=== PATIENT | male | born 1985 | race Caucasian/White ===

== ENCOUNTER 2017-01-31 16:26 | Inpatient (IN) | payer SELFPAY ==
[2017-01-31] VITALS (7 sets, daily range): BP systolic 116–125; BP diastolic 64–80; PULSE 95–108; RESP 16–18; TEMP 98.4–99.3; O2SAT 98–100
[~2017-01-31] VITALS: Ht 165.1 cm; Wt 62.8 kg
[2017-01-31] MEDS ORDERED: MORPHINE SULFATE 8 MG/ML INJ ONE (16:32)
[2017-01-31] MEDS ORDERED: LIDOCAINE HCL 1% PF 30 ML VIAL ONE (16:35)
[2017-01-31] MEDS ORDERED: MIDAZOLAM HCL 5 MG/ML VIAL (1 ML) ONE (16:36)
[2017-01-31 16:51] LABS: I-STAT POTASSIUM 3.2 MMOL/L (3.5-4.9)
[2017-01-31 16:54] LABS: AUTOMATED NEUTROPHIL # 5.3 TH/MM3 (1.8-7.7); BASOPHIL % 0.4 % (0.0-2.0); EOSINOPHIL # 0.1 TH/MM3 (0-0.4); EOSINOPHIL % 0.8 % (0.0-4.0); HEMATOCRIT 37.5 % (39.0-51.0); HEMO FLAGS DIFF FINAL; LYMPH % 17.1 % (9.0-44.0); LYMPHOCYTE # 1.2 TH/MM3 (1.0-4.8); MEAN CELL VOLUME 75.2 FL (80.0-100.0); MEAN CORPUSCULAR HEMOGLOBIN 24.6 PG (27.0-34.0); MEAN CORPUSCULAR HGB CONC 32.7 % (32.0-36.0); MONO % 8.5 % (0.0-8.0); NEUT % 73.2 % (16.0-70.0); PLATELET COUNT 182 TH/MM3 (150-450); RED BLOOD COUNT 4.98 MIL/MM3 (4.50-5.90); RED CELL DISTRIBUTION WIDTH 13.5 % (11.6-17.2); WHITE BLOOD COUNT 7.3 TH/MM3 (4.0-11.0)
[2017-01-31 17:02] LABS: APTT (PATIENT) 25.1 SEC (24.3-30.1); INTERNATIONAL NORMALIZED RATIO 1.2 RATIO; PROTHROMBIN TIME - PATIENT 13.6 SEC (9.8-11.6)
--- NOTE | 2017-01-31 17:02 | RADRPT ---
EXAM DATE/TIME: 01/31/2017 16:23 [facility] COMPARISON: No previous studies available for comparison. INDICATIONS : Trauma alert. Fall from tree. MEDICAL HISTORY : None. SURGICAL HISTORY : None. ENCOUNTER: Initial ACUITY: 1 day PAIN SCORE: 0/10 LOCATION: Bilateral chest FINDINGS: A single view of the chest demonstrates the lungs to be symmetrically aerated without evidence of mas s, infiltrate or effusion. The cardiomediastinal contours are unremarkable. Osseous structures are intact. CONCLUSION: No acute disease. Babak Rios MD on January 31, 2017 at 17:00 Board Certified Radiologist. This report was verified electronically.
--- NOTE | 2017-01-31 17:10 | PD ---
HPI Chief Complaint: trauma alert Time Seen by Provider: 17:02 Travel History International Travel<30 days: No Contact w/Intl Traveler<30days: No Traveled to known affect area: No History of Present Illness HPI This patient presents as a trauma alert. I gave report to trauma surgeon Dr. Lala who is present in the emergency room upon arrival of the patient. 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 He is presenting with very unstable vital signs. Initially found to be hypotensive at 89 systolic and tachycardic 160. GCS 15. He complains of pain "everywhere" . He is chief complaint is left hip pain. He is critically ill Allergies-Medications (Allergen,Severity, Reaction): Coded Allergies: No Known Allergies (Unverified , 01/31/17) Reported Meds & Prescriptions Reported Meds & Active Scripts Active No Active Prescriptions or Reported Medications Review of Systems General / Constitutional: No: Fever Eyes: No: Visual changes HENT: Positive: Headaches, Neck Pain Cardiovascular: Positive: Chest Pain or Discomfort, Tachycardia Respiratory: No: Shortness of Breath Gastrointestinal: No: Abdominal Pain Genitourinary: No: Dysuria Musculoskeletal: Positive: Pain Skin: No Rash Neurologic: No: Weakness Psychiatric: No: Depression Endocrine: No: Polydipsia Hematologic/Lymphatic: No: Easy Bruising Physical Exam Narrative GENERAL: Well-nourished, well-developed patient with severe pain and unstable vitals . SKIN: Focused skin assessment reveals no rash and nodules. Skin is Warm and dry. HEAD: Atraumatic. Normocephalic. EYES: Pupils equal and round. No scleral icterus. No injection or drainage. ENT: No nasal bleeding or discharge. Mucous membranes pink and moist. NECK: Trachea midline. No JVD. C-collar maintained CARDIOVASCULAR: Regular rate and rhythm. No murmur appreciated. RESPIRATORY: No accessory muscle use. Clear to auscultation. Breath sounds equal bilaterally. GASTROINTESTINAL: Abdomen soft, non-tender, nondistended. Hepatic and splenic margins not palpable. MUSCULOSKELETAL: Has tenderness and swelling at the proximal left femur. No clubbing. No cyanosis. No edema. Sensation and pulses intact in extremities. Has abrasion to the left mid back NEUROLOGICAL: Awake and alert. No obvious cranial nerve deficits. Motor grossly within normal limits. Normal speech. PSYCHIATRIC: Appropriate mood and affect; insight and judgment normal. Data Data Last Documented VS Vital Signs Date Time Temp Pulse Resp B/P Pulse Ox O2 Delivery O2 Flow Rate FiO2 01/31/17 16:51 99 4.00 Orders Morphine Inj (Morphine Inj) (01/31/17 16:32) I-Stat Profile (01/31/17 16:31) I-Stat Creatinine (01/31/17 16:31) Complete Blood Count With Diff (01/31/17 16:31) Prothrombin Time / Inr (Pt) (01/31/17 16:31) Act Partial Throm Time (Ptt) (01/31/17 16:31) Type And Screen (01/31/17 16:31) Chest, Single Ap (01/31/17 16:31) Ct Brain W/O Iv Contrast(Rout) (01/31/17 16:31) Ct Cerv Spine W/O Contrast (01/31/17 16:31) Ct Abd/Pel W Iv Contrast(Rout) (01/31/17 16:31) Ct Thorax/ Chest W Iv Contrast (01/31/17 16:31) Ct Thor Spine W/O Contrast (01/31/17 16:31) Ct Lumb Spine W/O Contrast (01/31/17 16:31) Iv Access Insert/Monitor (01/31/17 16:31) Ecg Monitoring (01/31/17 16:31) Oximetry (01/31/17 16:31) Oxygen Administration (01/31/17 16:31) Chest, Single Ap (01/31/17 ) Lidocaine Pf 1% Inj (Xylocaine-Mpf 1% In (01/31/17 16:35) Midazolam Inj (Versed Inj) (01/31/17 16:36) Femur, One View (01/31/17 ) Admit To Inpatient (01/31/17 ) Code Status (01/31/17 17:04) Vital Signs (Adult) Q4H (01/31/17 17:04) Activity Bed Rest (01/31/17 17:04) Chest Tube (01/31/17 17:04) Diet Npo (01/31/17 Dinner) Sodium Chlor 0.9% 1000 Ml Inj (Ns 1000 M (01/31/17 17:04) Sodium Chloride 0.9% Flush (Ns Flush) (01/31/17 17:15) Sodium Chloride 0.9% Flush (Ns Flush) (01/31/17 21:00) Ondansetron Inj (Zofran Inj) (01/31/17 17:15) Pantoprazole Inj (Protonix Inj) (01/31/17 17:15) Basic Metabolic Panel (Bmp) (02/01/17 06:00) Complete Blood Count With Diff (02/01/17 06:00) Chest, Single Ap (02/01/17 06:00) Resp Incentive Spirometry (01/31/17 ) Post-Op Orders (For Pharmacy) (Post-Op O (01/31/17 17:15) Morphine Inj (Morphine Inj) (01/31/17 17:15) Naloxone Inj (Narcan Inj) (01/31/17 17:15) Inpatient Certification (01/31/17 ) Fentanyl 50 Mcg Patch.72 Hr (Duragesic (01/31/17 17:15) Labs Laboratory Tests Test 01/31/17 16:32 White Blood Count 7.3 TH/MM3 Red Blood Count 4.98 MIL/MM3 Hemoglobin 12.3 GM/DL Bedside Hemoglobin 12.9 G/DL Hematocrit 37.5 % Bedside Hematocrit 38.0 % Mean Corpuscular Volume 75.2 FL Mean Corpuscular Hemoglobin 24.6 PG Mean Corpuscular Hemoglobin 32.7 % Concent Red Cell Distribution Width 13.5 % Platelet Count 182 TH/MM3 Mean Platelet Volume 8.7 FL Neutrophils (%) (Auto) 73.2 % Lymphocytes (%) (Auto) 17.1 % Monocytes (%) (Auto) 8.5 % Eosinophils (%) (Auto) 0.8 % Basophils (%) (Auto) 0.4 % Neutrophils # (Auto) 5.3 TH/MM3 Lymphocytes # (Auto) 1.2 TH/MM3 Monocytes # (Auto) 0.6 TH/MM3 Eosinophils # (Auto) 0.1 TH/MM3 Basophils # (Auto) 0.0 TH/MM3 CBC Comment DIFF FINAL Differential Comment Prothrombin Time 13.6 SEC Prothromb Time International 1.2 RATIO Ratio Activated Partial 25.1 SEC Thromboplast Time Bedside Sodium 145 MMOL/L Bedside Potassium 3.2 MMOL/L Bedside Chloride 107 MMOL/L Bedside Blood Urea Nitrogen 11 MG/DL Bedside Creatinine 1.7 MG/DL Bedside Glucose 120 MG/DL Blood Type A POSITIVE Antibody Screen NEGATIVE MDM Medical Screen Exam Complete: Yes Emergency Medical Condition: Yes Medical Record Reviewed: Yes Differential Diagnosis Pelvic fracture, hip fracture, intra-abdominal organ injury Narrative Course This patient presents as trauma alert critically ill 2 IVs placed He received 2 L normal saline IV bolus We gave him a dose of morphine and Zofran for symptom relief of severe pain Dr. Lala reviewed his chest x-ray and performed right sided chest tube Femur x-ray reveals left sided proximal femur fracture He arrived in a traction splint After IV fluid his blood pressure improved Blood pressure approximately 110 systolic Heart rate came down to 120s sinus tachycardia Patient will get full CT scan workup Saturation after chest tube 100% on oxygen nasal cannula CT brain negative CT C-spine negative CT chest shows multiple moderate right pneumothorax and chest tube in position CT abdomen and pelvis shows no true abdominal organ injury but does reveal proximal femur fracture on left Patient is admitted to intensive care trauma surgery Critical Care Narrative Aggregate critical care time was 34 minutes. Time to perform other separately billable procedures was not included in the critical care time. My time did not include minutes spent treating any other patients simultaneously or on activities that did not directly contribute to the patient's treatment. The services I provided to this patient were to treat and/or prevent clinically significant deterioration that could result in: Cardiopulmonary arrest, hemorrhagic shock, unstable pelvic fracture I provided critical care services requiring my management, as noted below: Chart data review, documentation time, medication orders and management, vital sign assessments/reviewing monitor data, ordering and reviewing lab tests, ordering and interpreting/reviewing x-rays and diagnostic studies, care of the patient and discussion of the patient with the admitting physicians. Trauma Alert - Level One Trauma Alert Level One: Full trauma team activate Diagnosis Diagnosis: Primary Impression: Femur fracture, left Qualified Code: S72.052A - Closed fracture of head of left femur, initial encounter Additional Impression: Pneumothorax on right Admitting Physician Requests: Admit Scripts No Active Prescriptions or Reported Evgenys Hema Munoz MD Jan 31, 2017 17:10
--- NOTE | 2017-01-31 17:13 | RADRPT ---
EXAM DATE/TIME: 01/31/2017 16:23 [facility] COMPARISON: No previous studies available for comparison. INDICATIONS : Trauma alert. Fall from tree. MEDICAL HISTORY : None. SURGICAL HISTORY : None. ENCOUNTER: Initial ACUITY: 1 day PAIN SCORE: 10/10 LOCATION: Left Femur FINDINGS: One view examination of the left femur demonstrates a mildly distracted intertrochanteric/subtrochant last fracture the proximal left femur. Femoral head remains well-seated within the acetabulum. Knee j oint appears intact. CONCLUSION: Proximal fracture of the femur as described. Keith Lancaster MD on January 31, 2017 at 17:10 Board Certified Radiologist. This report was verified electronically.
[2017-01-31] MEDS ORDERED: Post-op Orders (for Pharmacy) MISC XX ONE (17:15)
[2017-01-31] MEDS ORDERED: SODIUM CHLORIDE 0.9% FLUSH 10 ML FLUSH IV FLUSH PRN (17:15)
[2017-01-31] MEDS ORDERED: NALOXONE HCL 0.4 MG/ML AMP IV PRN (17:15)
--- NOTE | 2017-01-31 17:15 | RADRPT ---
EXAM DATE/TIME: 01/31/2017 16:23 [facility] COMPARISON: No previous studies available for comparison. INDICATIONS : Trauma alert. Fall from tree. Post chest tube. MEDICAL HISTORY : None. SURGICAL HISTORY : None. ENCOUNTER: Initial ACUITY: 1 day PAIN SCORE: 0/10 LOCATION: Bilateral chest FINDINGS: A single view of the chest demonstrates a small right pneumothorax. Chest tube is noted in place. Wilian gs are free of significant airspace disease or contusion. Left lung is clear. Heart and mediastinal structures have a normal configuration. There is no evidence of displaced rib fracture. CONCLUSION: 1. Small right pneumothorax 2. Right chest tube in place 3. No other evidence of acute process. Keith Lancaster MD on January 31, 2017 at 17:12 Board Certified Radiologist. This report was verified electronically.
--- NOTE | 2017-01-31 17:16 | RADRPT ---
EXAM DATE/TIME: 01/31/2017 16:51 [facility] COMPARISON: No previous studies available for comparison. INDICATIONS : Trauma Alert- patient fell from tree. RADIATION DOSE: 69.15 CTDIvol (mGy) MEDICAL HISTORY : None SURGICAL HISTORY : None. ENCOUNTER: Initial ACUITY: 1 day PAIN SCALE: 8/10 LOCATION: Bilateral cranial TECHNIQUE: Multiple contiguous axial images were obtained of the head. Using automated exposure control and adj ustment of the mA and/or kV according to patient size, radiation dose was kept as low as reasonably a chievable to obtain optimal diagnostic quality images. DICOM format image data is available electro nically for review and comparison. FINDINGS: CEREBRUM: The ventricles are normal for age. No evidence of midline shift, mass lesion, hemorrhage or acute in farction. No extra-axial fluid collections are seen. POSTERIOR FOSSA: The cerebellum and brainstem are intact. The 4th ventricle is midline. The cerebellopontine angle i s unremarkable. EXTRACRANIAL: The visualized portion of the orbits is intact. SKULL: The calvaria is intact. No evidence of skull fracture. CONCLUSION: No acute disease. No evidence of acute contusion, hemorrhage or extra-axial fluid collections. Intact calvarium. Keith Lancaster MD on January 31, 2017 at 17:14 Board Certified Radiologist. This report was verified electronically.
[2017-01-31] MEDS ORDERED: IODIXANOL 320 MG/ML 50 ML VIAL (for Rad CT) IV ONE (17:31)
--- NOTE | 2017-01-31 17:34 | RADRPT ---
EXAM DATE/TIME: 01/31/2017 17:03 [facility] COMPARISON: No previous studies available for comparison. INDICATIONS : Trauma Alert- patient fell from tree. IV CONTRAST: 50 cc Visipaque (iodixanol) IV RADIATION DOSE: 9.96 CTDIvol (mGy) ; Combined studies - Thorax/Abdomen/Pelvis MEDICAL HISTORY : None SURGICAL HISTORY : Left shoulder sx. ENCOUNTER: Initial ACUITY: 1 day PAIN SCALE: 10/10 LOCATION: Bilateral chest TECHNIQUE: Volumetric scanning of the chest was performed. Using automated exposure control and adjustment of t he mA and/or kV according to patient size, radiation dose was kept as low as reasonably achievable to obtain optimal diagnostic quality images. DICOM format image data is available electronically for review and comparison. Follow-up recommendations for incidentally detected pulmonary nodules are based at a minimum on nodul e size and patient risk factors according to Fleischner Society Guidelines. FINDINGS: LUNGS: There is a moderate anterior right pneumothorax despite thoracostomy tube placement. The left lung is clear and satisfactory. PLEURA: No evidence of hemothorax. MEDIASTINUM: The heart and great vessels demonstrate no acute abnormality. There is no mediastinal or hilar lymph adenopathy. No mediastinal hematoma AXILLAE: Within normal limits. No lymphadenopathy. SKELETAL: There appears to be some fragmentation of the right humeral head, mainly greater tuberosity region. MISCELLANEOUS: The visualized upper abdominal organs demonstrate no acute abnormality. CONCLUSION: Persistent right pneumothorax. Right humeral head fractures. Babak Rios MD on January 31, 2017 at 17:30 Board Certified Radiologist. This report was verified electronically.
--- NOTE | 2017-01-31 17:39 | RADRPT ---
EXAM DATE/TIME: 01/31/2017 16:51 [facility] COMPARISON: No previous studies available for comparison. INDICATIONS : Trauma Alert- patient fell from tree. RADIATION DOSE: 69.15 CTDIvol (mGy) MEDICAL HISTORY : None SURGICAL HISTORY : None. ENCOUNTER: Initial ACUITY: 1 day PAIN SCALE: 9/10 LOCATION: Bilateral neck region. TECHNIQUE: Volumetric scanning of the cervical spine was performed. Multiplanar reconstructions in the sagittal, coronal and oblique axial planes were performed. Using automated exposure control and adjustment o f the mA and/or kV according to patient size, radiation dose was kept as low as reasonably achievable to obtain optimal diagnostic quality images. DICOM format image data is available electronically f or review and comparison. FINDINGS: VERTEBRAE: Normal vertebral body height. ALIGNMENT: No evidence of subluxation. C2-C3: The bony spinal canal is normal in size. No evidence of disc bulge or herniation. The neural forami na are bilaterally patent. C3-C4: The bony spinal canal is normal in size. No evidence of disc bulge or herniation. The neural forami na are bilaterally patent. C4-C5: The bony spinal canal is normal in size. No evidence of disc bulge or herniation. The neural forami na are bilaterally patent. C5-C6: The bony spinal canal is normal in size. No evidence of disc bulge or herniation. The neural forami na are bilaterally patent. C6-C7: The bony spinal canal is normal in size. No evidence of disc bulge or herniation. The neural forami na are bilaterally patent. C7-T1: The bony spinal canal is normal in size. No evidence of disc bulge or herniation. The neural forami na are bilaterally patent. CONCLUSION: No acute disease. Keith Lancaster MD on January 31, 2017 at 17:36 Board Certified Radiologist. This report was verified electronically.
--- NOTE | 2017-01-31 17:43 | RADRPT ---
EXAM DATE/TIME: 01/31/2017 16:58 [facility] COMPARISON: No previous studies available for comparison. INDICATIONS : Trauma Alert- patient fell from tree. IV CONTRAST: 50 cc Visipaque (iodixanol) IV ORAL CONTRAST: No oral contrast ingested. RADIATION DOSE: 9.96 CTDIvol (mGy) ; Combined studies - Thorax/Abdomen/Pelvis MEDICAL HISTORY : None SURGICAL HISTORY : Lt shoulder sx. ENCOUNTER: Initial ACUITY: 1 day PAIN SCALE: 9/10 LOCATION: Bilateral lower quadrant TECHNIQUE: Volumetric scanning of the abdomen and pelvis was performed. Using automated exposure control and ad justment of the mA and/or kV according to patient size, radiation dose was kept as low as reasonably achievable to obtain optimal diagnostic quality images. DICOM format image data is available electro nically for review and comparison. FINDINGS: LOWER LUNGS: Small to moderate sized right pneumothorax is noted. Chest tube is noted in place. LIVER: Homogeneous density without lesion. There is no dilation of the biliary tree. No calcified gallston es. SPLEEN: Normal size without lesion. PANCREAS: Within normal limits. KIDNEYS: Normal in size and shape. There is no mass, stone or hydronephrosis. ADRENAL GLANDS: Within normal limits. VASCULAR: There is no aortic aneurysm. BOWEL/MESENTERY: The stomach, small bowel, and colon demonstrate no acute abnormality. There is no free intraperitone al air or fluid. ABDOMINAL WALL: Within normal limits. RETROPERITONEUM: There is no lymphadenopathy. BLADDER: No wall thickening or mass. REPRODUCTIVE: Within normal limits. INGUINAL: There is no lymphadenopathy or hernia. MUSCULOSKELETAL: Comminuted fracture is identified in the proximal left femoral shaft involving the intertrochanteric ridge. CONCLUSION: 1. Small to moderate right pneumothorax with chest tube in place. 2. Comminuted fracture of the proximal left femur 3. Normal abdominal and pelvic pelvic soft tissues without evidence of traumatic soft tissue injury. 4. Intact lumbar spine. Keith Lancaster MD on January 31, 2017 at 17:38 Board Certified Radiologist. This report was verified electronically.
[2017-01-31] MEDS ORDERED: ONDANSETRON HCL 4 MG/2 ML VIAL IV PRN (18:00)
[2017-01-31] MEDS: REMOVE OLD PATCH T-DERMAL SCH (18:00)
[2017-01-31] MEDS: SODIUM CHLOR 0.9% 1000 ML INJ 1,000 ML IV SCH (18:00)
--- NOTE | 2017-01-31 18:01 | RADRPT ---
EXAM DATE/TIME: 01/31/2017 17:03 [facility] COMPARISON: No previous studies available for comparison. INDICATIONS : Trauma Alert- patient fell from tree. RADIATION DOSE: CTDIvol (mGy) ; Reconstructed from previous dataset, no dose MEDICAL HISTORY : None SURGICAL HISTORY : LT shoulder sx. ENCOUNTER: Initial ACUITY: 1 day PAIN SCALE: 10/10 LOCATION: Bilateral mid back region. TECHNIQUE: Volumetric scanning of the thoracic spine was performed. Multiplanar reconstructions in the sagittal , coronal and oblique axial planes were performed. Using automated exposure control and adjustment o f the mA and/or kV according to patient size, radiation dose was kept as low as reasonably achievable to obtain optimal diagnostic quality images. DICOM format image data is available electronically f or review and comparison. FINDINGS: The vertebral bodies of the thoracic spine are in normal alignment without evidence of subluxation. Vertebral body height is maintained. No fractures are seen. T1-T2: Normal. T2-T3: The thecal sac has a normal diameter. No evidence of disc bulge or protrusion. T3-T4: The thecal sac has a normal diameter. No evidence of disc bulge or protrusion. T4-T5: The thecal sac has a normal diameter. No evidence of disc bulge or protrusion. T5-T6: The thecal sac has a normal diameter. No evidence of disc bulge or protrusion. T6-T7: The thecal sac has a normal diameter. No evidence of disc bulge or protrusion. T7-T8: The thecal sac has a normal diameter. No evidence of disc bulge or protrusion. T8-T9: The thecal sac has a normal diameter. No evidence of disc bulge or protrusion. T9-T10: The thecal sac has a normal diameter. No evidence of disc bulge or protrusion. T10-T11: The thecal sac has a normal diameter. No evidence of disc bulge or protrusion. T11-T12: The thecal sac has a normal diameter. No evidence of disc bulge or protrusion. T12-L1: The thecal sac has a normal diameter. No evidence of disc bulge or protrusion. Small to moderate right pneumothorax is noted. The right-sided chest tube has been placed course as d o the interlobar fissure. CONCLUSION: 1. No evidence of acute or soft tissue trauma to the thoracic spine. 2. Small to moderate right pneumothorax with chest tube placed into the interlobar fissure. Keith Lancaster MD on January 31, 2017 at 17:56 Board Certified Radiologist. This report was verified electronically.
[2017-01-31] MEDS: MORPHINE SULFATE 4 MG/ML INJ IV PRN ×3 (18:07→22:10)
[2017-01-31] MEDS: fentaNYL 50 MCG/HR PATCH T-DERMAL SCH (18:08)
--- NOTE | 2017-01-31 18:08 | RADRPT ---
EXAM DATE/TIME: 01/31/2017 16:58 [facility] COMPARISON: No previous studies available for comparison. INDICATIONS : Trauma Alert- patient fell from tree. RADIATION DOSE: CTDIvol (mGy) ; Reconstructed from previous dataset, no dose MEDICAL HISTORY : None SURGICAL HISTORY : None. ENCOUNTER: Initial ACUITY: 1 day PAIN SCALE: 9/10 LOCATION: Bilateral lower back region. TECHNIQUE: Volumetric scanning of the lumbar spine was performed. Multiplanar reconstructions in the sagittal, coronal and oblique axial planes were performed. Using automated exposure control and adjustment of the mA and/or kV according to patient size, radiation dose was kept as low as reasonably achievable t o obtain optimal diagnostic quality images. DICOM format image data is available electronically for review and comparison. FINDINGS: VERTEBRAE: Normal vertebral body height. ALIGNMENT: No evidence of subluxation. T12-L1: The thecal sac has a normal diameter. No evidence of disc bulge or protrusion. The neural foramina are patent bilaterally. L1-L2: The thecal sac has a normal diameter. No evidence of disc bulge or protrusion. The neural foramina are patent bilaterally. L2-L3: The thecal sac has a normal diameter. No evidence of disc bulge or protrusion. The neural foramina are patent bilaterally. L3-L4: The thecal sac has a normal diameter. No evidence of disc bulge or protrusion. The neural foramina are patent bilaterally. L4-L5: The thecal sac has a normal diameter. No evidence of disc bulge or protrusion. The neural foramina are patent bilaterally. L5-S1: The thecal sac has a normal diameter. No evidence of disc bulge or protrusion. The neural foramina are patent bilaterally. CONCLUSION: 1. No acute findings. Allen Levi MD on January 31, 2017 at 18:02 Board Certified Radiologist. This report was verified electronically.
--- NOTE | 2017-01-31 18:42 | MH ---
cc: NANCY BRAR MD DATE OF ADMISSION 01/31/[address] Brar / trauma surgery ADMISSION DIAGNOSIS Multiple trauma, fall, left femur intertrochanteric fracture and right pneumothorax, rib fractures. 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 The patient sustained multiple injuries and was therefore transferred to our institution for further care. The patient arrives a priority one trauma alert on a spinal board with C-collar in place. He is awake, alert and oriented. Apparently in the field the patient's pressure was somewhat decreased but on arrival his systolic is already 90. PAST MEDICAL HISTORY His past medical history is that of a fall a few days ago. PAST SURGICAL HISTORY Some soft of a left shoulder surgery. MEDICATIONS None. ALLERGIES NONE. SOCIAL HISTORY Noncontributory. PHYSICAL EXAMINATION GENERAL: Physical examination reveals a 30-year-old male in moderate distress due to pain. HEAD AND NECK: Normocephalic. No trauma to the head. Pupils equally reactive. Extraocular muscles intact. Neck is supple. Bilateral carotid pulses. No bruits. No hemotympanum. No Soto sign or raccoon's eyes. Patient has full range of motion of the neck. CHEST: Bilateral breath sounds, however, quite decreased over the right chest. The patient has minimum crepitus over the fifth and sixth rib areas consistent with a right-sided pneumothorax. ABDOMEN: Soft. Hypoactive bowel sounds. On palpation mildly tender and the patient is mildly guarding in all four quadrants but I believe this is more so because of his pain in the chest. Pelvis is stable. EXTREMITIES: The patient has bilateral femoral, popliteal, dorsalis pedis and posterior tibial pulses. Left leg is somewhat foreshortened and the patient has intertrochanteric fracture of the left femur. Motion of both arms is associated with pain. The patient has fracture of the right humerus in subglenoid location. NEUROLOGIC: The patient is fully neurologically intact. [place] scale is 15. He has full range of motion with limitations of injuries. Sensory preserved. IMPRESSION AND RECOMMENDATIONS The patient with multiple injuries including right pneumothorax and lung collapse, left intertrochanteric femur fracture and right humerus fracture. Orthopedics has been consulted. The patient is resuscitated according to trauma principals, undergoes appropriate studies and placed in the ICU overnight. Nancy SHRESTHA /6:01 PM /6:23 PM
[2017-01-31] MEDS ORDERED: PANTOPRAZOLE SODIUM 40 MG VIAL IV SCH (19:00)
[2017-01-31] MEDS: SODIUM CHLORIDE 0.9% FLUSH 10 ML FLUSH IV FLUSH SCH (20:08)
[2017-01-31] MEDS ORDERED: ALPRAZolam 0.25 MG TAB PO ONE (23:00)
[2017-02-01] VITALS (9 sets, daily range): BP systolic 114–132; BP diastolic 71–80; PULSE 75–95; RESP 16–23; TEMP 96.6–99.3; O2SAT 98–100
[2017-02-01] MEDS: MORPHINE SULFATE 4 MG/ML INJ IV PRN ×5 (00:27→08:58)
[2017-02-01] MEDS: SODIUM CHLOR 0.9% 1000 ML INJ 1,000 ML IV SCH ×2 (04:33→12:16)
--- NOTE | 2017-02-01 05:49 | RADRPT ---
EXAM DATE/TIME: 02/01/2017 05:14 [facility] COMPARISON: CHEST SINGLE AP, January 31, 2017, 16:23. INDICATIONS : Follow up trauma. MEDICAL HISTORY : None. SURGICAL HISTORY : None. ENCOUNTER: Subsequent ACUITY: 2 days PAIN SCORE: 4/10 LOCATION: Bilateral chest FINDINGS: Right-sided chest tube is noted with subcutaneous emphysema. There is a tiny right apical pneumothora x projecting between the second and third rib. Left lung is clear. Osseous structures are intact. CONCLUSION: Tiny right apical pneumothorax. Jamel Rader MD on February 01, 2017 at 5:47 Board Certified Radiologist. This report was verified electronically.
[2017-02-01] MEDS: SODIUM CHLORIDE 0.9% FLUSH 10 ML FLUSH IV FLUSH SCH (08:08)
[2017-02-01] MEDS: ACETAMINOPHEN 1000 MG/100 ML VIAL IV SCH ×3 (08:08→20:37)
[2017-02-01] MEDS: METHOCARBAMOL 500 MG TAB PO SCH ×3 (08:08→20:38)
[2017-02-01] MEDS: LIDOCAINE HCL 5% PATCH T-DERMAL SCH (08:09)
[2017-02-01 09:18] LABS: AUTOMATED NEUTROPHIL # 5.2 TH/MM3 (1.8-7.7); BASOPHIL % 0.4 % (0.0-2.0); EOSINOPHIL # 0.2 TH/MM3 (0-0.4); EOSINOPHIL % 2.1 % (0.0-4.0); HEMATOCRIT 41.7 % (39.0-51.0); HEMO FLAGS DIFF FINAL; LYMPH % 17.8 % (9.0-44.0); LYMPHOCYTE # 1.4 TH/MM3 (1.0-4.8); MEAN CELL VOLUME 76.8 FL (80.0-100.0); MEAN CORPUSCULAR HEMOGLOBIN 24.5 PG (27.0-34.0); MEAN CORPUSCULAR HGB CONC 31.9 % (32.0-36.0); MONO % 13.2 % (0.0-8.0); NEUT % 66.5 % (16.0-70.0); PLATELET COUNT 169 TH/MM3 (150-450); RED BLOOD COUNT 5.43 MIL/MM3 (4.50-5.90); RED CELL DISTRIBUTION WIDTH 13.9 % (11.6-17.2); WHITE BLOOD COUNT 7.9 TH/MM3 (4.0-11.0)
[2017-02-01] MEDS ORDERED: BUPIVACAINE/EPINEPHRINE 0.25% 50 ML VIAL ONE (09:40)
[2017-02-01] MEDS ORDERED: VANCOMYCIN HCL 1000 MG VIAL ONE (09:40)
[2017-02-01] MEDS ORDERED: GENTAMICIN SULFATE 80 MG/2 ML VIAL ONE (09:40)
[2017-02-01] MEDS ORDERED: ceFAZolin INJ 1,000 MG VIAL ONE (09:40)
[2017-02-01 09:41] LABS: BICARBONATE 22.9 MEQ/L (21.0-32.0); POTASSIUM 3.7 MEQ/L (3.5-5.1)
[2017-02-01] MEDS ORDERED: SODIUM CHLOR 0.9% 250 ML INJ 250 ML ONE (09:41)
--- NOTE | 2017-02-01 09:44 | PD.ORT.PN ---
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 X-rays show subtrochanteric femur of left side and minimally displaced fracture of the right greater tuberosity of the shoulder Objective Vitals Vital Signs Date Time Temp Pulse Resp B/P Pulse Ox O2 Delivery O2 Flow Rate FiO2 02/01/17 08:37 100 Nasal Cannula 2.00 02/01/17 07:00 100 Nasal Cannula 2.00 02/01/17 06:00 78 02/01/17 04:38 16 02/01/17 04:00 99.3 75 16 120/75 100 02/01/17 04:00 75 02/01/17 02:00 86 02/01/17 01:00 100 Nasal Cannula 3.00 02/01/17 00:00 78 02/01/17 00:00 99.0 78 17 114/75 100 01/31/17 22:30 100 Nasal Cannula 3.00 01/31/17 22:00 95 01/31/17 21:10 99.3 100 16 116/64 100 01/31/17 20:00 100 01/31/17 19:08 23 01/31/17 19:00 100 Nasal Cannula 4.00 01/31/17 17:30 98 Nasal Cannula 4.00 01/31/17 17:00 98.4 108 18 125/80 98 01/31/17 16:51 99 4.00 01/31/17 16:40 98 Nasal Cannula 4.00 I/O 01/31/17 01/31/17 01/31/17 02/01/17 02/01/17 02/01/17 07:00 15:00 23:00 07:00 15:00 23:00 Intake Total 2122 ml 804 ml 351 ml Output Total 675 ml 560 ml Balance 1447 ml 244 ml 351 ml Intake Oral 702 ml 10 ml IV Total 1420 ml 804 ml 341 ml Output Urine Total 675 ml 550 ml Chest Tube Drainage Total 10 ml # Bowel Movements 0 0 Result Diagram: 02/01/17 0847 02/01/17 0847 Other Results Laboratory Tests Test 01/31/17 16:32 Prothrombin Time 13.6 SEC (9.8-11.6) Prothromb Time International 1.2 RATIO Ratio Imaging Last 24 hours Impressions Chest X-Ray 02/01/17 0600 Signed Impressions: Service Date/Time: January 05:14 - CONCLUSION: Tiny right apical pneumothorax. Jamel Rader MD Thoracic Spine CT 01/31/171630 Signed Impressions: Service Date/Time: Tuesday, January 31, 2017 17:03 - CONCLUSION: 1. No evidence of acute or soft tissue trauma to the thoracic spine. 2. Small to moderate right pneumothorax with chest tube placed into the interlobar fissure. Keith Lancaster MD Lumbar Spine CT 01/31/171630 Signed Impressions: Service Date/Time: Tuesday, January 31, 2017 16:58 - CONCLUSION: 1. No acute findings. Allen Levi MD Head CT 01/31/171630 Signed Impressions: Service Date/Time: Tuesday, January 31, 2017 16:51 - CONCLUSION: No acute disease. No evidence of acute contusion, hemorrhage or extra-axial fluid collections. Intact calvarium. Keith Lancaster MD Chest X-Ray 01/31/171630 Signed Impressions: Service Date/Time: Tuesday, January 31, 2017 16:23 - CONCLUSION: 1. Small right pneumothorax 2. Right chest tube in place 3. No other evidence of acute process. Keith Lancaster MD Chest CT 01/31/171630 Signed Impressions: Service Date/Time: Tuesday, January 31, 2017 17:03 - CONCLUSION: Persistent right pneumothorax. Right humeral head fractures. Babak Rios MD Cervical Spine CT 01/31/171630 Signed Impressions: Service Date/Time: Tuesday, January 31, 2017 16:51 - CONCLUSION: No acute disease. Keith Lancaster MD Abdomen/Pelvis CT 01/31/171630 Signed Impressions: Service Date/Time: Tuesday, January 31, 2017 16:58 - CONCLUSION: 1. Small to moderate right pneumothorax with chest tube in place. 2. Comminuted fracture of the proximal left femur 3. Normal abdominal and pelvic pelvic soft tissues without evidence of traumatic soft tissue injury. 4. Intact lumbar spine. Keith Lancaster MD Objective Remarks Right upper extremity: Pain to palpation of proximal humerus. No tenderness over elbow wrist or fingers. Intact sensation of the radial ulnar median nerve distributions with good capillary refills. Left upper extremity: Full range of motion neurovascularly intact Left lower extremity: Patient is in Rueda's traction with tenderness to palpation over proximal femur. There is no tenderness over knee or ankle. Distally he has intact sensation is able to move all toes Right lower extremity: Full range of motion and neurovascularly intact Assessment & Plan Assessment and Plan Right minimally displaced greater tuberosity fracture proximal humerus Sling and swath at all times and will treat this nonoperatively area follow- up x-rays will be performed in 10-14 days to evaluate continued alignment. Fracture maintains position we will continue to treat this conservatively. He' ll be nonweightbearing on the right upper extremity Left subtrochanteric femur fracture Maintain Rueda's traction Nothing by mouth Surgery this morning for reduction of left femur and intramedullary jerrell fixation. Sign consents Los Wong Jr. Feb 01, 2017 09:44
[2017-02-01] MEDS ORDERED: LACTULOSE SYRUP 20 GM/30 ML CUP PO PRN (09:45)
[2017-02-01] MEDS ORDERED: PNEUMOCOCCAL POLYVALENT INJ 25 MCG/0.5 ML SYR IM ONE (10:00)
[2017-02-01] MEDS ORDERED: INFLUENZA VIRUS VACCINE (QUADRIVALENT) 0.5 ML SYR IM ONE (10:00)
[2017-02-01] MEDS ORDERED: HYDROmorphone HCL PF 2 MG/ML VIAL ONE (10:41)
--- NOTE | 2017-02-01 10:56 | PD.OP ---
cc: Thom Bolden MD Operative Report Date of Surgery: Feb 01, 2017 Preoperative Diagnosis: Displaced left femur subtrochanteric fracture, nondisplaced right greater tuberosity proximal humerus fracture Postoperative Diagnosis: Procedure: Left femur reduction and intramedullary nail fixation Surgeon: Thom Bolden Clinical Outcomes Manager(s): CALEB Delgadillo PA-C The surgical procedure was assisted by my physician quality assistant. My P.A. presence was necessary throughout this case for the manipulation and positioning of the surgical extremity. My P.A. was assisting me throughout the duration of this procedure. The skill set of a physician quality assistant was medically necessary to complete this procedure. During the surgical case the surgical elastic knitter hand frame was working at the back table and the physician quality assistant was directly assisting me. Operation and Findings: Implants used: [10]mm x [360]mm 130 Synthes TFNA troch nail Plan of activity: Weight-bear as tolerated left leg, nonweightbearing right arm Patient was seen and evaluated preoperatively. The patient has significant hip pain from proximal femur fracture. The risk and benefits of surgery were discussed in depth with the patient to include bleeding, infection, nonunion, malunion, need for hip replacement, painful hardware, as well as medical competitions including blood clots, stroke, heart attack, and . Informed consent was obtained. Operative site was marked. Patient was brought to the operating room and placed on fracture table. IV sedation was administered by anesthesiologist. Timeout procedure was performed. Hip and leg were prepped with alcohol followed by DuraPrep and draped in the usual sterile fashion. IV antibiotics were given prior to incision. Procedure began with reduction of fracture. Traction was applied. The leg was manipulated to achieve reduction. Excellent reduction was achieved. Fluoroscopy was used to confirm reduction. A three inch incision was made proximal to the trochanter. Subcutaneous tissue was dissected bluntly. Guidepin was placed at the tip of the trochanter and advanced into the femoral canal. Fluoroscopy confirmed appropriate guidepin placement. A opening reamer was placed over the guidepin. A long ball tipped guide pin was now placed down the femoral canal into the center of the distal femur. The nail length was now measured. Fluoroscopy confirmed appropriate guidepin placement. Flexible reamers were now passed over the guidepin to ream the intramedullary canal. The Synthes TFNA nail was attached to the insertion handle. Nail was now placed over the guidepin into the femoral canal. Fluoroscopy confirmed appropriate nail placement. A second incision was made over the lateral thigh. Cannulas were placed through the insertion handle down to the femur. Guidepin was now placed through the femoral nail into the center of the femoral head. Fluoroscopy confirmed appropriate guidepin placement. Screw length was measured. Cannulated drill was placed over the guidepin. Appropriate length lag screw was now placed. Traction was released and compression was applied. The set screw was now tightened in dynamic mode. Next, using perfect [place] [employer] [place] [employer] [place] technique two distal interlocking screws were placed. Screw holes were predrilled and screw lengths were measured. Final fluoroscopy revealed well aligned fracture with well-placed hardware. Incision was closed with 3-0 Vicryl and samira. Sterile dressings were applied. Patient was awakened and transferred to recovery room. Thom Bolden MD Feb 01, 2017 10:56
[2017-02-01] MEDS ORDERED: SODIUM CHLORIDE 0.9% FLUSH 5 ML FLUSH IVF PRN (11:00)
--- NOTE | 2017-02-01 11:16 | RADRPT ---
EXAM DATE/TIME: 02/01/2017 10:50 [facility] COMPARISON: No previous studies available for comparison. INDICATIONS : Post op ORIF of proximal femur fracture. MEDICAL HISTORY : None. SURGICAL HISTORY : None. ENCOUNTER: Subsequent ACUITY: 2 days PAIN SCORE: Non-responsive. LOCATION: Left Femur. FINDINGS: Status post placement of an intramedullary jerrell in the femur. There is good position and alignment of the fracture fragments. Hardware is grossly intact. CONCLUSION: Good position and alignment on the postoperative study. Rodo Hinson MD on February 01, 2017 at 11:15 Board Certified Radiologist. This report was verified electronically.
[2017-02-01] MEDS ORDERED: DO NOT ADM ANY ANTICOAGULANT DRUGS PRN (11:27)
[2017-02-01] MEDS ORDERED: MIDAZOLAM HCL 2 MG/2 ML VIAL ONE (11:32)
[2017-02-01] MEDS ORDERED: fentaNYL CITRATE 250 MCG/5 ML AMP ONE (11:33)
[2017-02-01] MEDS ORDERED: *HYDROmorphone PF 1 MG VIAL PERIprocedural Use ONLY ONE ×4 (11:36→12:30)
[2017-02-01] MEDS ORDERED: ERGOCALCIFEROL (VIT D2) 50,000 UNIT CAP PO ONE (12:00)
[2017-02-01] MEDS ORDERED: NEOSTIGMINE 3 MG/3 ML SYR IV ONE (12:00)
[2017-02-01] MEDS ORDERED: ONDANSETRON HCL 4 MG/2 ML VIAL IV PUSH ONE (12:00)
[2017-02-01] MEDS ORDERED: PHENYLEPH/NS 1000 MCG/10 ML SYR IV ONE (12:00)
[2017-02-01] MEDS ORDERED: KETOROLAC TROMETHAMINE 60 MG/2 ML (IM) VIAL IM ONE (12:00)
[2017-02-01] MEDS ORDERED: PROPOFOL 200 MG/20 ML AMP IV ONE (12:00)
[2017-02-01] MEDS ORDERED: *MEPERIDINE 25 MG INJ VIAL PERIprocedural Use ONLY ONE (12:08)
--- NOTE | 2017-02-01 12:43 | OTSOAPIP ---
PATIENT OFF THE FLOOR FOR SURGERY. Therapist: Kirsten Bell OTR/L Signature on file
[2017-02-01] MEDS: CALCIUM/VITAMIN D 250 MG/125 U TAB PO SCH ×2 (13:00→18:30)
--- NOTE | 2017-02-01 13:34 | RADRPT ---
EXAM DATE/TIME: 02/01/2017 12:32 [facility] COMPARISON: CHEST SINGLE AP, February 01, 2017, 5:14. INDICATIONS : Evaluate right sided pneumothorax and chest tube, pain right chest and shoulder MEDICAL HISTORY : shoulder fracture, pneumothorax SURGICAL HISTORY : chest tube, shoulder ENCOUNTER: Subsequent ACUITY: 2 days PAIN SCORE: 6/10 LOCATION: Right chest FINDINGS: A single view of the chest demonstrates a small right apical pneumothorax slightly larger when compar ed to the most recent study. The lungs remain free of significant airspace disease or congestion. Heart and mediastinal structures are stable. CONCLUSION: Small right apical pneumothorax slightly larger than on the prior study. Keith Lancaster MD on February 01, 2017 at 13:32 Board Certified Radiologist. This report was verified electronically.
--- NOTE | 2017-02-01 14:05 | MB ---
cc: KURT CAMPOVERDE DATE OF CONSULTATION: 02/01/2017 REASON FOR CONSULTATION 1. Left hip subtrochanteric fracture. 2. Right proximal humerus nondisplaced greater tuberosity fracture. CONSULTING PHYSICIAN Dr. Moreno. 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 He fell approximately 15 feet. He had multiple injuries including right proximal humerus fracture, left femur fracture, multiple rib fractures, and pneumothorax. He is currently awake and alert in the Intensive Care Unit. He complains of right shoulder pain, chest pain, and left hip pain. Pain is worse with movement and is improved with rest. PAST MEDICAL HISTORY ILLNESSES None. MEDICATIONS None. ALLERGIES None. SURGERIES Left shoulder surgery. SOCIAL HISTORY The patient denies alcohol, tobacco or drug abuse. FAMILY HISTORY Noncontributory. REVIEW OF SYSTEMS The patient denies headache, visual changes, neck pain, abdominal pain, nausea, vomiting or recent weight loss or numbness or tingling of extremities. He does have some chest pain secondary to rib fractures, right shoulder pain and left hip pain. Pain is worse with movement. PHYSICAL EXAMINATION GENERAL: The patient is a well-developed, well-nourished 30-year-old male who is awake and alert. He is alert and oriented x3. He appears well-developed, well-nourished. VITAL SIGNS: Temperature 98.8, pulse 94, respirations 23, blood pressure 117/76, O2 sat 100% on 2 liters nasal cannula. HEAD: The patient is normocephalic. Pupils are equal. NECK: Soft, nontender. Trachea is midline. ABDOMEN: Soft, nontender, nondistended. EXTREMITIES: Examination of the right arm reveals mild tenderness to palpation over the greater tuberosity. He has some discomfort with any shoulder motion. He has no pain with elbow, wrist or finger motion. Skin is intact. Radial pulses palpable. Sensation is intact in all fingers. Examination of left arm reveals no pain with shoulder, elbow or wrist motion. Skin is intact. Radial pulses palpable. Sensation is intact. Examination of right leg reveals no pain with hip, knee or ankle motion. Skin is intact. Dorsalis pedis pulses palpable. Examination of left leg reveals pain with any hip motion. Thigh and calf compartments are soft. He has minimal tenderness around his knee, tibia or ankle. Skin is intact. Dorsalis pedis pulses palpable. Sensation is intact in both feet. IMAGING STUDIES X-rays of left hip were reviewed. X-rays reveal a left hip subtrochanteric fracture. CT scan of the thorax was reviewed. The patient has nondisplaced left shoulder greater tuberosity fracture. IMPRESSION 1. Left hip subtrochanteric fracture. 2. Right shoulder greater tuberosity fracture. 3. Multiple rib fractures. PLAN Treatment options were discussed with the patient. At this point I would recommend nonoperative treatment of right shoulder and would recommend surgical intervention for left hip. Risks of surgery include bleeding, infection, injuries to arteries, nerves and blood vessels, nonunion, malunion, painful hardware, hip stiffness, loss of motion as well as medical complications including blood clot, stroke, heart attack and . All questions were answered. I will plan on surgery for left femur fracture today. A mid-level provider in my office, nurse practitioner or PA, may see this patient on a follow-up basis and continue to implement the objective of this plan including: Starting or adjusting medications, injections of muscle, tendon, bursa or joints, cast application, orthotic or brace application, physical therapy, further radiographic studies including x-ray, MRI, CT, ultrasounds or bone scan, vascular studies, neurologic studies, or other specialist consultations, and proceeding with surgical management as appropriate. MD STACY Amado/CHRISTAL /10:56 AM /12:50 PM
[2017-02-01] MEDS: ACETAMINOPHEN/HYDROcodone 325 MG/7.5 MG TAB PO PRN (18:28)
[2017-02-01] MEDS: diphenhydrAMINE HCL 25 MG CAP PO PRN (18:34)
[2017-02-01] MEDS: SODIUM CHLORIDE 0.9% FLUSH 5 ML FLUSH IVF SCH (20:38)
[2017-02-01] MEDS: DOCUSATE SODIUM 50 MG/SENNA 8.6 MG TAB PO SCH (20:38)
[2017-02-01] MEDS: ALPRAZolam 0.5 MG TAB PO PRN (20:38)
[2017-02-02] VITALS (8 sets, daily range): BP systolic 110–124; BP diastolic 61–72; PULSE 69–88; RESP 16–18; TEMP 96.9–98.7; O2SAT 95–100
[2017-02-02] MEDS: SODIUM CHLOR 0.9% 1000 ML INJ 1,000 ML IV SCH ×2 (01:36→11:00)
[2017-02-02] MEDS: ACETAMINOPHEN 1000 MG/100 ML VIAL IV SCH (01:36)
[2017-02-02] MEDS: ACETAMINOPHEN/HYDROcodone 325 MG/7.5 MG TAB PO PRN ×7 (03:36→23:48)
[2017-02-02] MEDS: ALPRAZolam 0.5 MG TAB PO PRN ×3 (03:38→20:56)
[2017-02-02] MEDS: METHOCARBAMOL 500 MG TAB PO SCH ×3 (05:48→20:52)
--- NOTE | 2017-02-02 06:59 | PD.ORT.PN ---
Subjective Subjective Remarks POD 1 s/p IMN left subtroch femur fracture s/p right greater tuberosity fracture doing well. pain controlled. no complaints. Objective Vitals Vital Signs Date Time Temp Pulse Resp B/P Pulse Ox O2 Delivery O2 Flow Rate FiO2 02/02/17 04:00 98.1 70 16 110/61 97 02/02/17 00:00 96.9 69 16 115/61 95 02/01/17 20:00 99.2 95 18 132/80 98 02/01/17 19:27 Nasal Cannula 2.00 02/01/17 16:22 96.6 93 17 129/71 100 02/01/17 16:00 97.8 98 16 117/60 99 Nasal Cannula 2 02/01/17 15:00 96 16 118/65 98 Nasal Cannula 2 02/01/17 14:00 94 16 120/66 98 Nasal Cannula 2 02/01/17 13:08 15 02/01/17 13:00 93 15 127/69 97 Nasal Cannula 2 02/01/17 13:00 15 02/01/17 12:45 91 15 128/76 96 Nasal Cannula 2 02/01/17 12:30 97.7 93 15 130/75 96 Nasal Cannula 2 02/01/17 12:28 15 02/01/17 12:17 15 02/01/17 12:15 90 15 134/73 98 Nasal Cannula 3 02/01/17 12:06 15 02/01/17 12:00 92 15 128/79 98 Nasal Cannula 3 02/01/17 11:45 98 14 121/80 97 Nasal Cannula 3 02/01/17 11:30 100 14 121/72 96 Nasal Cannula 3 02/01/17 11:25 97.6 111 13 115/69 100 Simple Mask 7 02/01/17 08:37 100 Nasal Cannula 2.00 02/01/17 08:00 94 02/01/17 08:00 98.8 94 23 117/76 100 02/01/17 07:00 100 Nasal Cannula 2.00 I/O 02/01/17 02/01/17 02/01/17 02/02/17 02/02/17 02/02/17 06:59 14:59 22:59 06:59 14:59 22:59 Intake Total 804 ml 1051 ml 2238 ml 1193 ml Output Total 560 ml 450 ml 1400 ml 1250 ml Balance 244 ml 601 ml 838 ml -57 ml Intake Oral 10 ml 960 ml 240 ml IV Total 804 ml 341 ml 1278 ml 953 ml Other 700 ml Output Urine Total 550 ml 350 ml 1400 ml 1250 ml Chest Tube Drainage Total 10 ml 0 ml 0 ml Estimated Blood Loss 100 ml # Bowel Movements 0 0 0 Result Diagram: 02/01/17 0847 02/01/17 0847 Imaging Last 24 hours Impressions Chest X-Ray 02/01/17 0600 Signed Impressions: Service Date/Time: January 05:14 - CONCLUSION: Tiny right apical pneumothorax. Jamel Rader MD Thoracic Spine CT 01/31/17 163 Signed Impressions: Service Date/Time: Tuesday, January 31, 2017 17:03 - CONCLUSION: 1. No evidence of acute or soft tissue trauma to the thoracic spine. 2. Small to moderate right pneumothorax with chest tube placed into the interlobar fissure. Keith Lancaster MD Lumbar Spine CT 01/31/17 163 Signed Impressions: Service Date/Time: Tuesday, January 31, 2017 16:58 - CONCLUSION: 1. No acute findings. Allen Levi MD Head CT 01/31/17 163 Signed Impressions: Service Date/Time: Tuesday, January 31, 2017 16:51 - CONCLUSION: No acute disease. No evidence of acute contusion, hemorrhage or extra-axial fluid collections. Intact calvarium. Keith Lancaster MD Chest X-Ray 01/31/17 163 Signed Impressions: Service Date/Time: Tuesday, January 31, 2017 16:23 - CONCLUSION: 1. Small right pneumothorax 2. Right chest tube in place 3. No other evidence of acute process. Keith Lancaster MD Chest CT 01/31/17 163 Signed Impressions: Service Date/Time: Tuesday, January 31, 2017 17:03 - CONCLUSION: Persistent right pneumothorax. Right humeral head fractures. Babak Rios MD Cervical Spine CT 01/31/17 163 Signed Impressions: Service Date/Time: Tuesday, January 31, 2017 16:51 - CONCLUSION: No acute disease. Keith Lancaster MD Abdomen/Pelvis CT 01/31/17 163 Signed Impressions: Service Date/Time: Tuesday, January 31, 2017 16:58 - CONCLUSION: 1. Small to moderate right pneumothorax with chest tube in place. 2. Comminuted fracture of the proximal left femur 3. Normal abdominal and pelvic pelvic soft tissues without evidence of traumatic soft tissue injury. 4. Intact lumbar spine. Keith Lancaster MD Objective Remarks LLE: dressings clean and dry. intact. NVI RUE: +sling. NVI. Assessment & Plan Assessment and Plan 1) Right minimally displaced greater tuberosity fracture proximal humerus - nonop Sling and swath at all times and will treat this nonoperatively area follow- up x-rays will be performed in 10-14 days to evaluate continued alignment. Fracture maintains position we will continue to treat this conservatively. He' ll be nonweightbearing on the right upper extremity 2) Left subtrochanteric femur fracture s/p IMN - POD 1 -50%WB -daily dressing changes with Xeroform/4x4/tape -DVT prophylaxis with lovenox, DC with Xarelto -Scripts on chart -f/u with [facility] or [facility] in 2 weeks -CM for Rehab vs home with [facility] -ortho cleared for DC when arrangements made Yash Hayward Feb 02, 2017 06:59
--- NOTE | 2017-02-02 07:01 | HHI.FF ---
Face to Face Verification Diagnosis: (1) Femur fracture, left (2) Fracture of greater tuberosity of right humerus Physical Therapy Gait training Hip: Hip fracture, Protocol: Left Left LE Weight Bearing: Partial WB 50% Occupational Therapy Right UE Weight Bearing: Non WB Right UE Range of Motion: No ROM Nursing Dressing Changes: Daily dressing change, 4x4s, Paper tape, Xeroform I have seen patient Babak Burroughs on 02/02/17. My clinical findings support the need for the requested home health care services because: Ltd mobility - disease progression I certify that my clinical findings support that this patient is homebound because: Post-op weakness Yash Hayward Feb 02, 2017 07:01
[2017-02-02 07:50] LABS: AUTOMATED NEUTROPHIL # 4.4 TH/MM3 (1.8-7.7); BASOPHIL % 0.4 % (0.0-2.0); EOSINOPHIL # 0.3 TH/MM3 (0-0.4); EOSINOPHIL % 4.9 % (0.0-4.0); HEMATOCRIT 33.6 % (39.0-51.0); HEMO FLAGS DIFF FINAL; LYMPH % 18.1 % (9.0-44.0); LYMPHOCYTE # 1.3 TH/MM3 (1.0-4.8); MEAN CELL VOLUME 76.9 FL (80.0-100.0); MEAN CORPUSCULAR HEMOGLOBIN 24.5 PG (27.0-34.0); MEAN CORPUSCULAR HGB CONC 31.9 % (32.0-36.0); MONO % 13.3 % (0.0-8.0); NEUT % 63.3 % (16.0-70.0); PLATELET COUNT 166 TH/MM3 (150-450); RED BLOOD COUNT 4.37 MIL/MM3 (4.50-5.90); RED CELL DISTRIBUTION WIDTH 13.6 % (11.6-17.2)
[2017-02-02 08:12] LABS: BICARBONATE 28.6 MEQ/L (21.0-32.0); POTASSIUM 3.5 MEQ/L (3.5-5.1)
[2017-02-02] MEDS: SODIUM CHLORIDE 0.9% FLUSH 5 ML FLUSH IVF SCH ×2 (09:00→20:53)
--- NOTE | 2017-02-02 09:12 | RADRPT ---
EXAM DATE/TIME: 02/02/2017 08:02 [facility] COMPARISON: CHEST SINGLE AP, February 01, 2017, 12:32. INDICATIONS : Evaluate right side pneumothorax and chest tube MEDICAL HISTORY : shoulder fx, pneumothorax SURGICAL HISTORY : chest tube ENCOUNTER: Subsequent ACUITY: 3 days PAIN SCORE: 10/10 LOCATION: Right chest FINDINGS: Right thoracostomy tube is stable in position. The right apical pneumothorax is stable to slightly de creased in size with about a centimeter separation of apical pleural layers. Left lung remains clear and well inflated. Cardiac contours are stable. CONCLUSION: Stable to slightly improved right pneumothorax Babak Rios MD on February 02, 2017 at 9:09 Board Certified Radiologist. This report was verified electronically.
[2017-02-02] MEDS: CHOLECALCIFEROL (VIT D3) 5000 UNIT CAP PO SCH (09:48)
[2017-02-02] MEDS: LIDOCAINE HCL 5% PATCH T-DERMAL SCH (09:48)
[2017-02-02] MEDS: DOCUSATE SODIUM 50 MG/SENNA 8.6 MG TAB PO SCH ×2 (09:48→20:52)
[2017-02-02] MEDS: FAMOTIDINE 20 MG TAB PO SCH ×2 (09:51→20:52)
[2017-02-02] MEDS: CALCIUM/VITAMIN D 250 MG/125 U TAB PO SCH ×3 (09:51→17:30)
[2017-02-02] MEDS: ENOXAPARIN SODIUM 30 MG/0.3 ML SYRINGE SQ SCH (09:53)
[2017-02-02] MEDS: MORPHINE SULFATE 4 MG/ML INJ IV PUSH PRN (11:28)
--- NOTE | 2017-02-02 12:11 | HHI.PR ---
Subjective Subjective Notes Complains of pain at chest tube site Not been OOB yet Objective Vitals/I&O Vital Signs Date Time Temp Pulse Resp B/P Pulse Ox O2 Delivery O2 Flow Rate FiO2 02/02/17 11:29 97.3 87 16 123/72 100 02/02/17 09:40 Nasal Cannula 2.00 Labs Laboratory Tests Test 02/02/17 07:02 White Blood Count 7.0 Red Blood Count 4.37 Hemoglobin 10.7 Hematocrit 33.6 Mean Corpuscular Volume 76.9 Mean Corpuscular Hemoglobin 24.5 Mean Corpuscular Hemoglobin 31.9 Concent Red Cell Distribution Width 13.6 Platelet Count 166 Mean Platelet Volume 8.9 Neutrophils (%) (Auto) 63.3 Lymphocytes (%) (Auto) 18.1 Monocytes (%) (Auto) 13.3 Eosinophils (%) (Auto) 4.9 Basophils (%) (Auto) 0.4 Neutrophils # (Auto) 4.4 Lymphocytes # (Auto) 1.3 Monocytes # (Auto) 0.9 Eosinophils # (Auto) 0.3 Basophils # (Auto) 0.0 CBC Comment DIFF FINAL Differential Comment Sodium Level 136 Potassium Level 3.5 Chloride Level 104 Carbon Dioxide Level 28.6 Anion Gap 3 Blood Urea Nitrogen 10 Creatinine 0.88 Estimat Glomerular Filtration 75 Rate Random Glucose 101 Calcium Level 7.6 Radiology Last Impressions Chest X-Ray 02/02/17 0000 Signed Impressions: Service Date/Time: Thursday, February 02, 2017 08:02 - CONCLUSION: Stable to slightly improved right pneumothorax Babak Rios MD Femur X-Ray 02/01/17 0000 Signed Impressions: Service Date/Time: January 10:50 - CONCLUSION: Good position and alignment on the postoperative study. Rodo Hinson MD Thoracic Spine CT 01/31/17 1631 Signed Impressions: Service Date/Time: Tuesday, January 31, 2017 17:03 - CONCLUSION: 1. No evidence of acute or soft tissue trauma to the thoracic spine. 2. Small to moderate right pneumothorax with chest tube placed into the interlobar fissure. Keith Lancaster MD Lumbar Spine CT 01/31/17 1631 Signed Impressions: Service Date/Time: Tuesday, January 31, 2017 16:58 - CONCLUSION: 1. No acute findings. Allen Levi MD Head CT 01/31/17 1631 Signed Impressions: Service Date/Time: Tuesday, January 31, 2017 16:51 - CONCLUSION: No acute disease. No evidence of acute contusion, hemorrhage or extra-axial fluid collections. Intact calvarium. Keith Lancaster MD Chest CT 01/31/17 1631 Signed Impressions: Service Date/Time: Tuesday, January 31, 2017 17:03 - CONCLUSION: Persistent right pneumothorax. Right humeral head fractures. Babak Rios MD Cervical Spine CT 01/31/17 1631 Signed Impressions: Service Date/Time: Tuesday, January 31, 2017 16:51 - CONCLUSION: No acute disease. Keith Lancaster MD Abdomen/Pelvis CT 01/31/17 163 Signed Impressions: Service Date/Time: Tuesday, January 31, 2017 16:58 - CONCLUSION: 1. Small to moderate right pneumothorax with chest tube in place. 2. Comminuted fracture of the proximal left femur 3. Normal abdominal and pelvic pelvic soft tissues without evidence of traumatic soft tissue injury. 4. Intact lumbar spine. Keith Lancaster MD Narrative Exam GENERAL: 31 year old well-nourished, well developed male lying in bed. SKIN: Warm and dry. HEAD: Normocephalic. ENT: No nasal bleeding or discharge. Mucous membranes pink and moist. NECK: Trachea midline. No JVD. CARDIOVASCULAR: Regular rate and rhythm. RESPIRATORY: No accessory muscle use. Lungs clear and diminished to auscultation. RIGHT lateral CT in place secured to pleura vac on -20cm suction. No air leak. GASTROINTESTINAL: Abdomen soft, non-tender, nondistended. + BS. MUSCULOSKELETAL: Extremities without cyanosis, or edema. LEFT hip dressing C/D/ I. RUE sling in place. MAEW. NEUROLOGICAL: Awake and alert. Normal speech. A/P Assessment and Plan INJURIES: LEFT intertrochanteric hip fx RIGHT PTX RIGHT humerus fx (non-op) 02/01: LEFT hip long trochanter nail PMHx: Benzo and Dilaudid use Diet: Regular, tolerating Pulm: IS, EZ-PAP Pain: Fentayl patch , Morphine , Robaxin, Lidoderm patch, [place] Activity: OOB. PT and OT ordered (WBAT LLE, NWB RUE) GI: Pepcid Bowel: Chary-colace, PRN Lactulose. LBM 0 DVT: SCDs, Lovenox 30 QD LEFT intertrochanteric hip fx Orthopedics consulted 02/01: LEFT hip long trochanter nail WBAT LLE OOB- PT ABX: Ancef x3 Lovenox RIGHT PTX 01/31: Right CT placed Pain control Pulmonary toileting CXR today shows small apical PTX Daily CT dressing changes CT placed to water seal CXR in AM RIGHT humerus fx Orthopedics consulted Non-operative management NWB RUE Pain control OT Plan of care discussed with patient at bedside. CM consulted to assist with DC planning. Mahesh evaluating for possible placement. Abril Miller Feb 02, 2017 12:10
[2017-02-02] MEDS ORDERED: METHOCARBAMOL 500 MG TAB PO SCH (14:00)
[2017-02-03] VITALS (7 sets, daily range): BP systolic 121–134; BP diastolic 72–78; PULSE 75–94; RESP 16–20; TEMP 97.2–98.8; O2SAT 16–100
[2017-02-03] MEDS: METHOCARBAMOL 500 MG TAB PO SCH ×3 (04:45→21:43)
[2017-02-03] MEDS: ACETAMINOPHEN/HYDROcodone 325 MG/7.5 MG TAB PO PRN ×4 (04:45→21:44)
[2017-02-03] MEDS: ALPRAZolam 0.5 MG TAB PO PRN ×3 (04:45→21:43)
--- NOTE | 2017-02-03 06:07 | RADRPT ---
EXAM DATE/TIME: 02/03/2017 05:05 [facility] COMPARISON: CHEST SINGLE AP, February 02, 2017, 8:02. INDICATIONS : Evaluate for pnuemothorax, right side chest tube MEDICAL HISTORY : Right side chest tube SURGICAL HISTORY : ENCOUNTER: Subsequent ACUITY: 4 - 6 days PAIN SCORE: 7/10 LOCATION: Bilateral chest FINDINGS: A single view of the chest demonstrates the lungs to be symmetrically aerated without evidence of mas s, infiltrate or effusion. Right apical pneumothorax is unchanged. Right-sided chest tube unchanged. The cardiomediastinal contours are unremarkable. Osseous structures are intact. CONCLUSION: 1. Right-sided chest tube and right apical pneumothorax are unchanged. Naveen Aguilar MD on February 03, 2017 at 6:04 Board Certified Radiologist. This report was verified electronically.
[2017-02-03 07:46] LABS: REVIEW FLAG FINAL
[2017-02-03 08:00] LABS: BICARBONATE 30.6 MEQ/L (21.0-32.0); POTASSIUM 3.5 MEQ/L (3.5-5.1)
[2017-02-03] MEDS: SODIUM CHLORIDE 0.9% FLUSH 5 ML FLUSH IVF SCH ×2 (09:00→21:44)
[2017-02-03] MEDS: LIDOCAINE HCL 5% PATCH T-DERMAL SCH (09:19)
[2017-02-03] MEDS: CHOLECALCIFEROL (VIT D3) 5000 UNIT CAP PO SCH (09:20)
[2017-02-03] MEDS: FAMOTIDINE 20 MG TAB PO SCH ×2 (09:20→21:43)
[2017-02-03] MEDS: DOCUSATE SODIUM 50 MG/SENNA 8.6 MG TAB PO SCH ×2 (09:20→21:43)
[2017-02-03] MEDS: ENOXAPARIN SODIUM 30 MG/0.3 ML SYRINGE SQ SCH (09:20)
[2017-02-03] MEDS: CALCIUM/VITAMIN D 250 MG/125 U TAB PO SCH ×3 (09:20→17:56)
[2017-02-03] MEDS: LACTULOSE SYRUP 20 GM/30 ML CUP PO SCH (09:25)
[2017-02-03] MEDS: MORPHINE SULFATE 4 MG/ML INJ IV PUSH PRN (10:55)
--- NOTE | 2017-02-03 11:03 | PD.ORT.PN ---
Subjective Post Op Day #: 2 Subjective Remarks Patient is OOB in chair with moderate pain to the right upper extremity and LLE. The patient denies tingling and numbness to the RUE and LLE. Patient reports he would like to go home with home health when able rather than rehab. Objective Vitals Vital Signs Date Time Temp Pulse Resp B/P Pulse Ox O2 Delivery O2 Flow Rate FiO2 02/03/17 08:00 97.7 87 18 127/76 99 02/03/17 04:00 98.0 93 16 134/75 100 02/03/17 00:00 98.0 93 16 134/75 100 02/02/17 19:53 99 Nasal Cannula 2.00 02/02/17 19:00 98.7 88 16 124/69 100 02/02/17 18:58 Nasal Cannula 2.00 02/02/17 16:20 99 Nasal Cannula 2.00 02/02/17 15:11 97.1 87 18 122/66 100 02/02/17 11:29 97.3 87 16 123/72 100 I/O 02/02/17 02/02/17 02/02/17 02/03/17 02/03/17 02/03/17 06:59 14:59 22:59 06:59 14:59 22:59 Intake Total 1193 ml 720 ml 480 ml 480 ml Output Total 1250 ml 10 ml 750 ml 700 ml Balance -57 ml 710 ml -270 ml -220 ml Intake Oral 240 ml 720 ml 480 ml 480 ml IV Total 953 ml Output Urine Total 1250 ml 750 ml 700 ml Chest Tube Drainage Total 0 ml 10 ml 0 ml # Voids 2 # Bowel Movements 0 0 0 0 Result Diagram: 02/03/17 0720 02/03/17 0720 Imaging Last 24 hours Impressions Chest X-Ray 02/01/17 0600 Signed Impressions: Service Date/Time: January 05:14 - CONCLUSION: Tiny right apical pneumothorax. Jamel Rader MD Thoracic Spine CT 01/31/17 1631 Signed Impressions: Service Date/Time: Tuesday, January 31, 2017 17:03 - CONCLUSION: 1. No evidence of acute or soft tissue trauma to the thoracic spine. 2. Small to moderate right pneumothorax with chest tube placed into the interlobar fissure. Keith Lancaster MD Lumbar Spine CT 01/31/171630 Signed Impressions: Service Date/Time: Tuesday, January 31, 2017 16:58 - CONCLUSION: 1. No acute findings. Allen Levi MD Head CT 01/31/171630 Signed Impressions: Service Date/Time: Tuesday, January 31, 2017 16:51 - CONCLUSION: No acute disease. No evidence of acute contusion, hemorrhage or extra-axial fluid collections. Intact calvarium. Keith Lancaster MD Chest X-Ray 01/31/171630 Signed Impressions: Service Date/Time: Tuesday, January 31, 2017 16:23 - CONCLUSION: 1. Small right pneumothorax 2. Right chest tube in place 3. No other evidence of acute process. Keith Lancaster MD Chest CT 01/31/171630 Signed Impressions: Service Date/Time: Tuesday, January 31, 2017 17:03 - CONCLUSION: Persistent right pneumothorax. Right humeral head fractures. Babak Rios MD Cervical Spine CT 01/31/171630 Signed Impressions: Service Date/Time: Tuesday, January 31, 2017 16:51 - CONCLUSION: No acute disease. Keith Lancaster MD Abdomen/Pelvis CT 01/31/171630 Signed Impressions: Service Date/Time: Tuesday, January 31, 2017 16:58 - CONCLUSION: 1. Small to moderate right pneumothorax with chest tube in place. 2. Comminuted fracture of the proximal left femur 3. Normal abdominal and pelvic pelvic soft tissues without evidence of traumatic soft tissue injury. 4. Intact lumbar spine. Keith Lancaster MD Objective Remarks LLE: dressings clean and dry. intact. NVI. + SILT. Calf is soft and nontender. Neg Homans RUE: +sling. NVI. + SILT. Mild swelling to upper arm. Good ROM of wrist and elbow. Chest tube in place Assessment & Plan Ortho Post Op Day #: 2 Problem List: Assessment and Plan 1) Right minimally displaced greater tuberosity fracture proximal humerus - nonop Sling and swath at all times and will treat this nonoperatively area follow- up x-rays will be performed in 10-14 days to evaluate continued alignment. Fracture maintains position we will continue to treat this conservatively. He' ll be nonweightbearing on the right upper extremity 2) Left subtrochanteric femur fracture s/p IMN - POD 2 -50%WB -daily dressing changes with Xeroform/4x4/tape -DVT prophylaxis with lovenox, DC with Xarelto -Scripts on chart -f/u with [facility] or [facility] in 2 weeks -CM for Rehab vs. C on Sunday or Sunday -ortho cleared for DC when arrangements made Chest tube to be pulled tomorrow. Matt Ng Feb 03, 2017 11:03
--- NOTE | 2017-02-03 11:20 | HHI.PR ---
Subjective Subjective Notes PTD: 3 Pt observed sitting up in bed upon rounds. Pt states, "I'm as good as I'm gonna get." Pt states that he has been out of bed to the chair - yesterday. "I almost . " * Spoke with RN at bedside - Pt becomes very apprehensive about getting out of bed unless he is medicated with Morphine prior to ambulation. Observed pt yelling and crying for nurse for more pain medication when he attempted to get out of bed with PT. Objective Vitals/I&O Vital Signs Date Time Temp Pulse Resp B/P Pulse Ox O2 Delivery O2 Flow Rate FiO2 02/03/17 08:00 97.7 87 18 127/76 99 02/02/17 19:53 Nasal Cannula 2.00 Labs Laboratory Tests Test 02/03/17 07:20 Hemoglobin 10.6 Hematocrit 32.0 Sodium Level 139 Potassium Level 3.5 Chloride Level 102 Carbon Dioxide Level 30.6 Anion Gap 6 Blood Urea Nitrogen 6 Creatinine 0.61 Estimat Glomerular Filtration 156 Rate Random Glucose 88 Calcium Level 8.2 Radiology Last Impressions Chest X-Ray 02/02/17 0000 Signed Impressions: Service Date/Time: Thursday, February 02, 2017 08:02 - CONCLUSION: Stable to slightly improved right pneumothorax Babak Rios MD Femur X-Ray 02/01/17 0000 Signed Impressions: Service Date/Time: January 10:50 - CONCLUSION: Good position and alignment on the postoperative study. Rodo Hinson MD Thoracic Spine CT 01/31/17 1631 Signed Impressions: Service Date/Time: Tuesday, January 31, 2017 17:03 - CONCLUSION: 1. No evidence of acute or soft tissue trauma to the thoracic spine. 2. Small to moderate right pneumothorax with chest tube placed into the interlobar fissure. Keith Lancaster MD Lumbar Spine CT 01/31/17 1631 Signed Impressions: Service Date/Time: Tuesday, January 31, 2017 16:58 - CONCLUSION: 1. No acute findings. Allen Levi MD Head CT 01/31/17 1631 Signed Impressions: Service Date/Time: Tuesday, January 31, 2017 16:51 - CONCLUSION: No acute disease. No evidence of acute contusion, hemorrhage or extra-axial fluid collections. Intact calvarium. Keith Lancaster MD Chest CT 01/31/17 163 Signed Impressions: Service Date/Time: Tuesday, January 31, 2017 17:03 - CONCLUSION: Persistent right pneumothorax. Right humeral head fractures. Babak Rios MD Cervical Spine CT 01/31/17 163 Signed Impressions: Service Date/Time: Tuesday, January 31, 2017 16:51 - CONCLUSION: No acute disease. Keith Lancaster MD Abdomen/Pelvis CT 01/31/17 163 Signed Impressions: Service Date/Time: Tuesday, January 31, 2017 16:58 - CONCLUSION: 1. Small to moderate right pneumothorax with chest tube in place. 2. Comminuted fracture of the proximal left femur 3. Normal abdominal and pelvic pelvic soft tissues without evidence of traumatic soft tissue injury. 4. Intact lumbar spine. Keith Lancaster MD Narrative Exam GENERAL: This is a 31-year-old male sitting up in bed. No distress noted. Pleasant and cooperative. SKIN: Warm and dry. HEAD: Atraumatic. Normocephalic. EYES: PERRLA ENT: No nasal bleeding or discharge. Mucous membranes pink and moist. NECK: Trachea midline. No JVD. CARDIOVASCULAR: Regular rate and rhythm. RESPIRATORY: No accessory muscle use. Lungs are clear to auscultation. Breath sounds equal bilaterally. No distress or dyspnea. RIGHT lateral chest tube in place to Pleur-evac drainage system to water seal. No air leak noted. Dressing CDI. GASTROINTESTINAL: BS + x 4 quads. Abdomen soft, non-tender, nondistended. MUSCULOSKELETAL: Extremities without cyanosis, or edema. RIGHT arm in sling . + peripheral pulses x 4 extremities. Warm with good capillary refill and sensation. MAEW. NEUROLOGICAL: Awake and alert. Normal speech and pattern. A/P Problem List: (1) Pneumothorax on right (2) Femur fracture, left (3) Fracture of greater tuberosity of right humerus Assessment and Plan [place]: This is a 31-year-old male who was trimming trees when he fell out of the tree. Approximately 15 feet and landed on his back. He was initially found to be hypotensive at SBP = 89, and tachycardic with HR = 160. GCS 15. PMHx: Benzo and dilaudid use INJURIES: RIGHT humerus fx (non-op) RIGHT PTX LEFT intertrochanteric hip fx Procedures: 01/31: R CT placed 02/01: LEFT hip long trochanter nail Consults: Orthopedics. Case management. Diet: Regular diet. Tolerating po diet. Encourage good po intake with each meal. Pulmonary: Encourage good pulmonary toileting. IS at bedside and pt encouraged to use. Rationale for use explained to patient, and verbalized understanding. EZ pap. Wean FiO2 for sats > 92%. RIGHT lateral chest tube in place to Pleur-evac drainage system to water seal. No air leak noted. Small stable PTX noted on this a.m. chest x-ray. Patient is clinically stable. Repeat chest x-ray in the morning to evaluate for possible chest tube removal in the a.m. PAIN Management: [place] 7.5 mg q 3h. Fentanyl patch 50 mcg. Robaxin 500 mg q8h. Lidoderm patch. DC morphine IV. Added Tylenol IV 1 dose, and Toradol 15 mg q6h for continued complaint of pain. Activity: OOB 3 times a day. PT and OT ordered. (NWB RUE; WBAT LLE) GI prophylaxis: Pepcid po BID. Bowel regimen: Chary-Colace. Added MOM. Lactulose daily. LBM: 0 DVT prophylaxis: Mechanical VTE with SCDs. Chemical management with Lovenox SQ 30 q day. DC Planning: Case management consulted for assistance with final discharge disposition. [facility] is evaluating the patient for a possible [facility] bed. Emotional support provided to patient and family at bedside and plan of care discussed. Discussed with RN at bedside and physical therapist. Patient is hemodynamically stable and being managed on the med/surg floor. The trauma team will round each day, and evaluate plan of care on a daily basis. LEFT intertrochanteric hip fx Orthopedics consulted and assisting in management and care 02/01: LEFT hip long trochanter nail WBAT LLE Pain management OOB 3 times a day - PT and OT ordered Encourage out of bed ABX: Ancef x3 - complete Lovenox for DVT prophylaxis RIGHT PTX 01/31: Right CT placed Pain control - Pulmonary toileting - IS and EZ pap. CDB. CXR today shows small apical PTX Follow-up chest x-ray in the morning - plan for removal of chest tube in a.m. Daily CT dressing changes CT to water seal - no air leak noted RIGHT humerus fx Orthopedics consulted and assisting in management and care Non-operative management at this time Right sling in place Pain management NWB RUE PT and OT ordered Problem Qualifiers (1) Femur fracture, left: Qualified Code: S72.052A - Closed fracture of head of left femur, initial encounter (2) Fracture of greater tuberosity of right humerus: Qualified Code: S42.251A - Closed displaced fracture of greater tuberosity of right humerus, initial encounter Abida Estrada Feb 03, 2017 11:20
[2017-02-03] MEDS ORDERED: SENN1TAB PO (12:51)
[2017-02-03] MEDS ORDERED: MAGN400S PO (12:51)
--- NOTE | 2017-02-03 12:52 | HHI.FF ---
Face to Face Verification Diagnosis: (1) Femur fracture, left (2) Fracture of greater tuberosity of right humerus (3) Pneumothorax on right Physical Therapy Order: Evaluate and Treat, Improve ambulation, Strength and gait training Home Health Nursing Order: Medical education Signs/symptoms of disease process Medication education-adverse effect Wound care and dressing changes (per ortho's face to face orders) Nursing assessment with vital signs I have seen patient Garry Grant on 02/03/17. My clinical findings support the need for the requested home health care services because: Ltd mobility - disease progression Deconditioned w/ increased weakness Limited ability to care for self High risk of falls I certify that my clinical findings support that this patient is homebound because: Post-op weakness Unsteady gait/balance Unsafe to leave home unassisted Abida Estrada Feb 03, 2017 12:52
[2017-02-03] MEDS: KETOROLAC TROMETHAMINE 30 MG/ML (IVP) VIAL IV PUSH SCH ×3 (13:51→23:39)
[2017-02-03] MEDS ORDERED: ACETAMINOPHEN 1000 MG/100 ML VIAL IV ONE (15:00)
[2017-02-03] MEDS: fentaNYL 50 MCG/HR PATCH T-DERMAL SCH (17:56)
[2017-02-03] MEDS: REMOVE OLD PATCH T-DERMAL SCH (17:57)
[2017-02-03] MEDS: MAGNESIUM HYDROXIDE SUSP 30 ML CUP PO SCH (21:44)
[2017-02-04] VITALS: BP 116/68; PULSE 77; RESP 18; TEMP 98; O2SAT 100
[2017-02-04] MEDS: ACETAMINOPHEN/HYDROcodone 325 MG/7.5 MG TAB PO PRN ×5 (03:36→20:32)
[2017-02-04] MEDS: ALPRAZolam 0.5 MG TAB PO PRN ×3 (05:32→20:32)
[2017-02-04] MEDS: METHOCARBAMOL 500 MG TAB PO SCH ×3 (05:32→20:32)
[2017-02-04] MEDS: KETOROLAC TROMETHAMINE 30 MG/ML (IVP) VIAL IV PUSH SCH ×3 (05:33→17:26)
--- NOTE | 2017-02-04 06:04 | RADRPT ---
EXAM DATE/TIME: 02/04/2017 05:16 [facility] COMPARISON: CHEST SINGLE AP, February 03, 2017, 5:05. INDICATIONS : Shortness of breath. MEDICAL HISTORY : None. SURGICAL HISTORY : Right side chest tube, Left shoulder surgery ENCOUNTER: Subsequent ACUITY: 4 - 6 days PAIN SCORE: 2/10 LOCATION: Bilateral chest FINDINGS: A single view of the chest demonstrates the lungs to be symmetrically aerated without evidence of mas s, infiltrate or effusion. Right-sided chest tube and right apical pneumothorax has slightly increase d in size measuring 1.6 cm of pleural separation. The cardiomediastinal contours are unremarkable. O sseous structures are intact. CONCLUSION: Small right apical pneumothorax has increased in size from previous study. Naveen Aguilar MD on February 04, 2017 at 6:02 Board Certified Radiologist. This report was verified electronically.
[2017-02-04 08:00] VITALS: BP 117/72; PULSE 70; RESP 16; TEMP 97; O2SAT 98
[2017-02-04] MEDS: SODIUM CHLORIDE 0.9% FLUSH 5 ML FLUSH IVF SCH ×2 (09:00→20:31)
[2017-02-04] MEDS: LACTULOSE SYRUP 20 GM/30 ML CUP PO SCH (09:00)
[2017-02-04 09:10] VITALS: O2SAT 96
--- NOTE | 2017-02-04 09:32 | PD.ORT.PN ---
Subjective Subjective Remarks Patient is resting comfortably in bed. The patient denies tingling and numbness to the RUE and LLE. Patient's pain well managed with pain medication. Objective Vitals Vital Signs Date Time Temp Pulse Resp B/P Pulse Ox O2 Delivery O2 Flow Rate FiO2 02/04/17 00:00 98.0 77 18 116/68 100 02/03/17 21:36 100 02/03/17 20:00 98.8 94 20 121/72 99 02/03/17 19:08 Room Air 02/03/17 16:00 97.8 75 18 126/78 98 02/03/17 12:00 97.2 82 18 128/75 100 I/O 02/03/17 02/03/17 02/03/17 02/04/17 02/04/17 02/04/17 07:00 15:00 23:00 07:00 15:00 23:00 Intake Total 480 ml 1080 ml 480 ml Output Total 700 ml 1550 ml 0 ml Balance -220 ml -470 ml 480 ml Intake Oral 480 ml 1080 ml 480 ml Output Urine Total 700 ml 1550 ml Chest Tube Drainage Total 0 ml 0 ml # Voids 0 # Bowel Movements 0 1 0 Result Diagram: 02/03/17 0720 02/03/17 0720 Imaging Last 24 hours Impressions Chest X-Ray 02/01/17 0600 Signed Impressions: Service Date/Time: January 05:14 - CONCLUSION: Tiny right apical pneumothorax. Jamel Rader MD Thoracic Spine CT 01/31/17 163 Signed Impressions: Service Date/Time: Tuesday, January 31, 2017 17:03 - CONCLUSION: 1. No evidence of acute or soft tissue trauma to the thoracic spine. 2. Small to moderate right pneumothorax with chest tube placed into the interlobar fissure. Keith Lancaster MD Lumbar Spine CT 01/31/17 163 Signed Impressions: Service Date/Time: Tuesday, January 31, 2017 16:58 - CONCLUSION: 1. No acute findings. Allen Levi MD Head CT 01/31/17 163 Signed Impressions: Service Date/Time: Tuesday, January 31, 2017 16:51 - CONCLUSION: No acute disease. No evidence of acute contusion, hemorrhage or extra-axial fluid collections. Intact calvarium. Keith Lancaster MD Chest X-Ray 01/31/171630 Signed Impressions: Service Date/Time: Tuesday, January 31, 2017 16:23 - CONCLUSION: 1. Small right pneumothorax 2. Right chest tube in place 3. No other evidence of acute process. Keith Lancaster MD Chest CT 01/31/17 163 Signed Impressions: Service Date/Time: Tuesday, January 31, 2017 17:03 - CONCLUSION: Persistent right pneumothorax. Right humeral head fractures. Babak Rios MD Cervical Spine CT 01/31/17 163 Signed Impressions: Service Date/Time: Tuesday, January 31, 2017 16:51 - CONCLUSION: No acute disease. Keith Lancaster MD Abdomen/Pelvis CT 01/31/171630 Signed Impressions: Service Date/Time: Tuesday, January 31, 2017 16:58 - CONCLUSION: 1. Small to moderate right pneumothorax with chest tube in place. 2. Comminuted fracture of the proximal left femur 3. Normal abdominal and pelvic pelvic soft tissues without evidence of traumatic soft tissue injury. 4. Intact lumbar spine. Keith Lancaster MD Objective Remarks LLE: dressings clean and dry. intact. NVI. + SILT. Calf is soft and nontender. Neg Homans. Increased AROM of left knee. Mild swelling to upper leg. RUE: +sling. NVI. + SILT. Mild swelling to upper arm. Good ROM of wrist and elbow. Chest tube in place Assessment & Plan Assessment and Plan 1) Right minimally displaced greater tuberosity fracture proximal humerus - nonop Sling and swath at all times and will treat this nonoperatively area follow- up x-rays will be performed in 10-14 days to evaluate continued alignment. Fracture maintains position we will continue to treat this conservatively. He' ll be nonweightbearing on the right upper extremity 2) Left subtrochanteric femur fracture s/p IMN - POD 3 -50%WB -daily dressing changes with Xeroform/4x4/tape -DVT prophylaxis with lovenox, DC with Xarelto -Scripts on chart -f/u with [facility] or [facility] in 2 weeks -CM for Rehab vs. C on Sunday or Sunday -ortho cleared for DC when arrangements made -Plan is for removal of chest tube today and possible discharge Chest tube to be pulled tomorrow. Matt Ng [facility] Feb 04, 2017 09:32
[2017-02-04] MEDS: CHOLECALCIFEROL (VIT D3) 5000 UNIT CAP PO SCH (09:41)
[2017-02-04] MEDS: FAMOTIDINE 20 MG TAB PO SCH ×2 (09:41→20:31)
[2017-02-04] MEDS: CALCIUM/VITAMIN D 250 MG/125 U TAB PO SCH ×3 (09:41→17:29)
[2017-02-04] MEDS: LIDOCAINE HCL 5% PATCH T-DERMAL SCH (09:42)
[2017-02-04] MEDS: ENOXAPARIN SODIUM 30 MG/0.3 ML SYRINGE SQ SCH (09:42)
[2017-02-04] MEDS: DOCUSATE SODIUM 50 MG/SENNA 8.6 MG TAB PO SCH ×2 (09:44→20:32)
--- NOTE | 2017-02-04 10:22 | HHI.PR ---
Subjective Subjective Notes PTD: 4 Patient lying in bed. No distress noted. No complaints offered. Patient states that he got out of bed 3 times yesterday. Objective Vitals/I&O Vital Signs Date Time Temp Pulse Resp B/P Pulse Ox O2 Delivery O2 Flow Rate FiO2 02/04/17 08:00 97.0 70 16 117/72 98 02/03/17 19:08 Room Air 02/02/17 19:53 2.00 Labs Laboratory Tests Test 01/31/17 01/31/17 02/02/17 02/03/17 16:32 21:35 07:02 07:20 Bedside Hemoglobin 12.9 G/DL Bedside Hematocrit 38.0 % Prothrombin Time 13.6 SEC Prothromb Time International 1.2 RATIO Ratio Activated Partial 25.1 SEC Thromboplast Time Bedside Sodium 145 MMOL/L Bedside Potassium 3.2 MMOL/L Bedside Chloride 107 MMOL/L Bedside Blood Urea Nitrogen 11 MG/DL Bedside Creatinine 1.7 MG/DL Bedside Glucose 120 MG/DL Blood Type A POSITIVE Antibody Screen NEGATIVE Nasal Screen MRSA (PCR) MRSA NOT DETECTED White Blood Count 7.0 TH/MM3 Red Blood Count 4.37 MIL/MM3 Mean Corpuscular Volume 76.9 FL Mean Corpuscular Hemoglobin 24.5 PG Mean Corpuscular Hemoglobin 31.9 % Concent Red Cell Distribution Width 13.6 % Platelet Count 166 TH/MM3 Mean Platelet Volume 8.9 FL Neutrophils (%) (Auto) 63.3 % Lymphocytes (%) (Auto) 18.1 % Monocytes (%) (Auto) 13.3 % Eosinophils (%) (Auto) 4.9 % Basophils (%) (Auto) 0.4 % Neutrophils # (Auto) 4.4 TH/MM3 Lymphocytes # (Auto) 1.3 TH/MM3 Monocytes # (Auto) 0.9 TH/MM3 Eosinophils # (Auto) 0.3 TH/MM3 Basophils # (Auto) 0.0 TH/MM3 CBC Comment DIFF FINAL Differential Comment Hemoglobin 10.6 GM/DL Hematocrit 32.0 % Sodium Level 139 MEQ/L Potassium Level 3.5 MEQ/L Chloride Level 102 MEQ/L Carbon Dioxide Level 30.6 MEQ/L Anion Gap 6 MEQ/L Blood Urea Nitrogen 6 MG/DL Creatinine 0.61 MG/DL Estimat Glomerular Filtration 156 ML/MIN Rate Random Glucose 88 MG/DL Calcium Level 8.2 MG/DL Radiology Last Impressions Chest X-Ray 02/04/17 0600 Signed Impressions: Service Date/Time: Saturday, February 04, 2017 05:16 - CONCLUSION: Small right apical pneumothorax has increased in size from previous study. Naveen Aguilar MD Femur X-Ray 02/01/17 0000 Signed Impressions: Service Date/Time: January 10:50 - CONCLUSION: Good position and alignment on the postoperative study. Rodo Hinson MD Thoracic Spine CT 01/31/17 1631 Signed Impressions: Service Date/Time: Tuesday, January 31, 2017 17:03 - CONCLUSION: 1. No evidence of acute or soft tissue trauma to the thoracic spine. 2. Small to moderate right pneumothorax with chest tube placed into the interlobar fissure. Keith Lancaster MD Lumbar Spine CT 01/31/17 163 Signed Impressions: Service Date/Time: Tuesday, January 31, 2017 16:58 - CONCLUSION: 1. No acute findings. Allen Levi MD Head CT 01/31/17 163 Signed Impressions: Service Date/Time: Tuesday, January 31, 2017 16:51 - CONCLUSION: No acute disease. No evidence of acute contusion, hemorrhage or extra-axial fluid collections. Intact calvarium. Keith Lancaster MD Chest CT 01/31/17 163 Signed Impressions: Service Date/Time: Tuesday, January 31, 2017 17:03 - CONCLUSION: Persistent right pneumothorax. Right humeral head fractures. Babak Rios MD Cervical Spine CT 01/31/17 163 Signed Impressions: Service Date/Time: Tuesday, January 31, 2017 16:51 - CONCLUSION: No acute disease. Keith Lancaster MD Abdomen/Pelvis CT 01/31/17 1631 Signed Impressions: Service Date/Time: Tuesday, January 31, 2017 16:58 - CONCLUSION: 1. Small to moderate right pneumothorax with chest tube in place. 2. Comminuted fracture of the proximal left femur 3. Normal abdominal and pelvic pelvic soft tissues without evidence of traumatic soft tissue injury. 4. Intact lumbar spine. Keith Lancaster MD Narrative Exam GENERAL: This is a 31-year-old male sitting up in bed. No distress noted. Pleasant and cooperative. SKIN: Warm and dry. HEAD: Atraumatic. Normocephalic. EYES: PERRLA ENT: No nasal bleeding or discharge. Mucous membranes pink and moist. NECK: Trachea midline. No JVD. CARDIOVASCULAR: Regular rate and rhythm. RESPIRATORY: No accessory muscle use. Lungs are clear to auscultation. Breath sounds equal bilaterally. No distress or dyspnea. RIGHT lateral chest tube in place to Pleur-evac drainage system to 20 suction. No air leak noted. Dressing CDI. GASTROINTESTINAL: BS + x 4 quads. Abdomen soft, non-tender, nondistended. MUSCULOSKELETAL: Extremities without cyanosis, or edema. RIGHT arm in sling . + peripheral pulses x 4 extremities. Warm with good capillary refill and sensation. MAEW. NEUROLOGICAL: Awake and alert. Normal speech and pattern. A/P Problem List: (1) Pneumothorax on right (2) Femur fracture, left (3) Fracture of greater tuberosity of right humerus Assessment and Plan [employer] [place] [place]: This is a 31-year-old male who was trimming trees when he fell out of the tree. Approximately 15 feet and landed on his back. He was initially found to be hypotensive at SBP = 89, and tachycardic with HR = 160. GCS 15. PMHx: Benzo and dilaudid use INJURIES: RIGHT humerus fx (non-op) RIGHT PTX LEFT intertrochanteric hip fx Procedures: 01/31: R CT placed 02/01: LEFT hip long trochanter nail Consults: Orthopedics. Case management. Diet: Regular diet. Tolerating po diet. Encourage good po intake with each meal. Pulmonary: Encourage good pulmonary toileting. IS at bedside and pt encouraged to use. Rationale for use explained to patient, and verbalized understanding. EZ pap. This a.m. chest x-ray shows increase in PTX size. RIGHT lateral chest tube returned to 20 cm suction. Repeat chest x-ray in the morning. PAIN Management: [place] 7.5 mg q 3h. Fentanyl patch 50 mcg. Robaxin 500 mg q8h. Lidoderm patch. Toradol 15 mg q6h. Activity: OOB 3 times a day - encourage out of bed. PT and OT ordered. (NWB RUE; WBAT LLE) GI prophylaxis: Pepcid po BID. Bowel regimen: Chary-Colace BID. MOM. Lactulose daily. LBM: 02/04. DVT prophylaxis: Mechanical VTE with SCDs. Chemical management with Lovenox SQ 30 q day. DC Planning: Case management consulted for assistance with final discharge disposition. [facility] is evaluating the patient for a possible milena bed. Patient does not want to go to rehabilitation, he would like to be discharged home. Emotional support provided to patient and family at bedside and plan of care discussed. Discussed with RN at bedside. Patient is hemodynamically stable and being managed on the med/surg floor. The trauma team will round each day, and evaluate plan of care on a daily basis. LEFT intertrochanteric hip fx Orthopedics consulted and assisting in management and care 02/01: LEFT hip long trochanter nail 50% WB LLE Pain management OOB 3 times a day PT and OT ordered Encourage out of bed ABX: Ancef x3 - complete Lovenox for DVT prophylaxis RIGHT PTX 01/31: Right CT placed Pain control - Pulmonary toileting - IS and EZ pap. CDB. CXR today increase in size of apical PTX Chest tube returned to 20 cm suction today Follow-up chest x-ray in the morning. Daily CT dressing changes Encourage out of bed PT and OT ordered RIGHT humerus fx Orthopedics consulted and assisting in management and care Non-operative management at this time Right sling in place Pain management NWB RUE Encourage out of bed PT and OT ordered Problem Qualifiers (1) Femur fracture, left: Qualified Code: S72.052A - Closed fracture of head of left femur, initial encounter (2) Fracture of greater tuberosity of right humerus: Qualified Code: S42.251A - Closed displaced fracture of greater tuberosity of right humerus, initial encounter Abida Estrada Feb 04, 2017 10:22
[2017-02-04 12:00] VITALS: BP 120/69; PULSE 76; RESP 16; TEMP 97.2; O2SAT 99
[2017-02-04 16:00] VITALS: BP 114/67; PULSE 76; RESP 16; TEMP 97; O2SAT 98
[2017-02-04] MEDS ORDERED: SODIUM CHLOR 0.9% 1000 ML INJ 1,000 ML IV ONE (16:45)
[2017-02-04 19:00] VITALS: BP 166/92; PULSE 85; RESP 17; TEMP 97.1; O2SAT 100
[2017-02-04] MEDS: MAGNESIUM HYDROXIDE SUSP 30 ML CUP PO SCH (20:32)
[2017-02-05] VITALS (7 sets, daily range): BP systolic 112–157; BP diastolic 63–97; PULSE 72–83; RESP 16–18; TEMP 96.5–98.4; O2SAT 95–100
[2017-02-05] MEDS: KETOROLAC TROMETHAMINE 30 MG/ML (IVP) VIAL IV PUSH SCH ×5 (00:40→23:45)
[2017-02-05] MEDS: ACETAMINOPHEN/HYDROcodone 325 MG/7.5 MG TAB PO PRN ×6 (00:41→21:45)
[2017-02-05] MEDS: METHOCARBAMOL 500 MG TAB PO SCH ×3 (05:49→22:00)
[2017-02-05] MEDS: ALPRAZolam 0.5 MG TAB PO PRN ×3 (05:50→21:45)
--- NOTE | 2017-02-05 06:54 | RADRPT ---
EXAM DATE/TIME: 02/05/2017 06:17 [facility] COMPARISON: CHEST SINGLE AP, February 04, 2017, 5:16. INDICATIONS : Short of breath, evaluate chest tube MEDICAL HISTORY : right side pneumothorax SURGICAL HISTORY : right chest ENCOUNTER: Subsequent ACUITY: 4 - 6 days PAIN SCORE: 10/10 LOCATION: Right FINDINGS: Right chest drainage tube in place, unchanged in position. Right apical pneumothorax is decreased in size to 1.0 cm (previously 1.6 cm). The lungs are symmetrically aerated. The heart is normal in si ze.CONCLUSION: Decrease in right apical pneumothorax to 1.0 cm. Edi Carter MD on February 05, 2017 at 6:51 Board Certified Radiologist. This report was verified electronically.
--- NOTE | 2017-02-05 07:13 | PD.ORT.PN ---
Subjective Subjective Remarks Resting comfortably with no new complaints Objective Vitals Vital Signs Date Time Temp Pulse Resp B/P Pulse Ox O2 Delivery O2 Flow Rate FiO2 02/05/17 04:39 96 Nasal Cannula 2.00 02/05/17 00:00 97.4 76 17 157/97 96 02/04/17 19:23 Nasal Cannula 2.00 02/04/17 19:00 97.1 85 17 166/92 100 02/04/17 16:00 97.0 76 16 114/67 98 02/04/17 12:00 97.2 76 16 120/69 99 02/04/17 09:10 96 21 02/04/17 08:00 97.0 70 16 117/72 98 I/O 02/04/17 02/04/17 02/04/17 02/05/17 02/05/17 02/05/17 07:00 15:00 23:00 07:00 15:00 23:00 Intake Total 480 ml 600 ml 1012 ml 743 ml Output Total 0 ml 1510 ml 600 ml 300 ml Balance 480 ml -910 ml 412 ml 443 ml Intake Oral 480 ml 600 ml 485 ml 480 ml IV Total 527 ml 263 ml Output Urine Total 1500 ml 600 ml 300 ml Chest Tube Drainage Total 0 ml 10 ml 0 ml 0 ml # Voids 0 # Bowel Movements 0 0 0 0 Result Diagram: 02/03/1720 02/03/17 0720 Imaging Last 24 hours Impressions Chest X-Ray 02/01/17 0600 Signed Impressions: Service Date/Time: January 05:14 - CONCLUSION: Tiny right apical pneumothorax. Jamel Rader MD Thoracic Spine CT 01/31/171630 Signed Impressions: Service Date/Time: Tuesday, January 31, 2017 17:03 - CONCLUSION: 1. No evidence of acute or soft tissue trauma to the thoracic spine. 2. Small to moderate right pneumothorax with chest tube placed into the interlobar fissure. Keith Lancaster MD Lumbar Spine CT 01/31/171630 Signed Impressions: Service Date/Time: Tuesday, January 31, 2017 16:58 - CONCLUSION: 1. No acute findings. Allen Levi MD Head CT 01/31/171630 Signed Impressions: Service Date/Time: Tuesday, January 31, 2017 16:51 - CONCLUSION: No acute disease. No evidence of acute contusion, hemorrhage or extra-axial fluid collections. Intact calvarium. Keith Lancaster MD Chest X-Ray 01/31/17 163 Signed Impressions: Service Date/Time: Tuesday, January 31, 2017 16:23 - CONCLUSION: 1. Small right pneumothorax 2. Right chest tube in place 3. No other evidence of acute process. Keith Lancaster MD Chest CT 01/31/17 163 Signed Impressions: Service Date/Time: Tuesday, January 31, 2017 17:03 - CONCLUSION: Persistent right pneumothorax. Right humeral head fractures. Babak Rios MD Cervical Spine CT 01/31/17 163 Signed Impressions: Service Date/Time: Tuesday, January 31, 2017 16:51 - CONCLUSION: No acute disease. Keith Lancaster MD Abdomen/Pelvis CT 01/31/17 163 Signed Impressions: Service Date/Time: Tuesday, January 31, 2017 16:58 - CONCLUSION: 1. Small to moderate right pneumothorax with chest tube in place. 2. Comminuted fracture of the proximal left femur 3. Normal abdominal and pelvic pelvic soft tissues without evidence of traumatic soft tissue injury. 4. Intact lumbar spine. Keith Lancaster MD Objective Remarks LLE: dressings clean and dry. intact. NVI. + SILT. Calf is soft and nontender. Neg Homans. Increased AROM of left knee. Mild swelling to upper leg. RUE: +sling. NVI. + SILT. Mild swelling to upper arm. Good ROM of wrist and elbow. Assessment & Plan Assessment and Plan 1) Right minimally displaced greater tuberosity fracture proximal humerus - nonop Sling and swath at all times and will treat this nonoperatively area follow- up x-rays will be performed in 10-14 days to evaluate continued alignment. Fracture maintains position we will continue to treat this conservatively. He' ll be nonweightbearing on the right upper extremity 2) Left subtrochanteric femur fracture s/p IMN - POD 4 -50%WB -daily dressing changes with Xeroform/4x4/tape -DVT prophylaxis with lovenox, DC with Xarelto -Scripts on chart -f/u with Joseph or [facility] in 2 weeks -CM for Rehab vs. HHC today -ortho cleared for DC when arrangements made -Plan is for removal of chest tube today and possible discharge Follow-up appointment with Dr. Bolden or [place] in 2 weeks Los Wong Jr. Feb 05, 2017 07:13
[2017-02-05] MEDS: DOCUSATE SODIUM 50 MG/SENNA 8.6 MG TAB PO SCH ×2 (09:10→20:14)
[2017-02-05] MEDS: FAMOTIDINE 20 MG TAB PO SCH ×2 (09:10→20:14)
[2017-02-05] MEDS: CHOLECALCIFEROL (VIT D3) 5000 UNIT CAP PO SCH (09:10)
[2017-02-05] MEDS: LACTULOSE SYRUP 20 GM/30 ML CUP PO SCH (09:10)
[2017-02-05] MEDS: CALCIUM/VITAMIN D 250 MG/125 U TAB PO SCH ×3 (09:10→18:02)
[2017-02-05] MEDS: ENOXAPARIN SODIUM 30 MG/0.3 ML SYRINGE SQ SCH (09:10)
[2017-02-05] MEDS: SODIUM CHLORIDE 0.9% FLUSH 5 ML FLUSH IVF SCH ×2 (09:10→20:14)
[2017-02-05] MEDS: LIDOCAINE HCL 5% PATCH T-DERMAL SCH (09:12)
[2017-02-05] MEDS: diphenhydrAMINE HCL 25 MG CAP PO PRN (11:48)
--- NOTE | 2017-02-05 11:52 | HHI.PR ---
Subjective Subjective Notes PTD: 5 Patient out of bed and sitting in a chair. Patient states, "the pain is all right right now, but it hurts if I move." Objective Vitals/I&O Vital Signs Date Time Temp Pulse Resp B/P Pulse Ox O2 Delivery O2 Flow Rate FiO2 02/05/17 10:25 95 02/05/17 08:00 96.5 72 18 112/63 02/05/17 04:39 Nasal Cannula 2.00 02/04/17 09:10 21 Labs Laboratory Tests Test 01/31/17 02/02/17 02/03/17 21:35 07:02 07:20 Nasal Screen MRSA (PCR) MRSA NOT DETECTED White Blood Count 7.0 TH/MM3 Red Blood Count 4.37 MIL/MM3 Mean Corpuscular Volume 76.9 FL Mean Corpuscular Hemoglobin 24.5 PG Mean Corpuscular Hemoglobin 31.9 % Concent Red Cell Distribution Width 13.6 % Platelet Count 166 TH/MM3 Mean Platelet Volume 8.9 FL Neutrophils (%) (Auto) 63.3 % Lymphocytes (%) (Auto) 18.1 % Monocytes (%) (Auto) 13.3 % Eosinophils (%) (Auto) 4.9 % Basophils (%) (Auto) 0.4 % Neutrophils # (Auto) 4.4 TH/MM3 Lymphocytes # (Auto) 1.3 TH/MM3 Monocytes # (Auto) 0.9 TH/MM3 Eosinophils # (Auto) 0.3 TH/MM3 Basophils # (Auto) 0.0 TH/MM3 CBC Comment DIFF FINAL Differential Comment Hemoglobin 10.6 GM/DL Hematocrit 32.0 % Sodium Level 139 MEQ/L Potassium Level 3.5 MEQ/L Chloride Level 102 MEQ/L Carbon Dioxide Level 30.6 MEQ/L Anion Gap 6 MEQ/L Blood Urea Nitrogen 6 MG/DL Creatinine 0.61 MG/DL Estimat Glomerular Filtration 156 ML/MIN Rate Random Glucose 88 MG/DL Calcium Level 8.2 MG/DL Radiology Last 24 hours Impressions Chest X-Ray 02/05/17 0600 Signed Impressions: Service Date/Time: Sunday, February 05, 2017 06:17 - CONCLUSION: Decrease in right apical pneumothorax to 1.0 cm. Edi Carter MD Narrative Exam GENERAL: This is a 31-year-old male OOB sitting in a chair No distress noted. Pleasant and cooperative. SKIN: Warm and dry. HEAD: Atraumatic. Normocephalic. EYES: PERRLA ENT: No nasal bleeding or discharge. Mucous membranes pink and moist. NECK: Trachea midline. No JVD. CARDIOVASCULAR: Regular rate and rhythm. RESPIRATORY: No accessory muscle use. Lungs are clear to auscultation. Breath sounds equal bilaterally. No distress or dyspnea. RIGHT lateral chest tube in place to Pleur-evac drainage system to 20 suction. No air leak noted. Dressing CDI. GASTROINTESTINAL: BS + x 4 quads. Abdomen soft, non-tender, nondistended. MUSCULOSKELETAL: Extremities without cyanosis, or edema. RIGHT arm in sling . + peripheral pulses x 4 extremities. Warm with good capillary refill and sensation. MAEW. NEUROLOGICAL: Awake and alert. Normal speech and pattern. A/P Problem List: (1) Pneumothorax on right (2) Femur fracture, left (3) Fracture of greater tuberosity of right humerus Assessment and Plan [place]: This is a 31-year-old male who was trimming trees when he fell out of the tree. Approximately 15 feet and landed on his back. He was initially found to be hypotensive at SBP = 89, and tachycardic with HR = 160. GCS 15. PMHx: Benzo and dilaudid use INJURIES: RIGHT humerus fx (non-op) RIGHT PTX LEFT intertrochanteric hip fx Procedures: 01/31: R CT placed 02/01: LEFT hip long trochanter nail Consults: Orthopedics. Case management. Diet: Regular diet. Tolerating po diet. Encourage good po intake with each meal. Pulmonary: Encourage good pulmonary toileting. IS at bedside and pt encouraged to use. Rationale for use explained to patient, and verbalized understanding. EZ pap. This a.m. chest x-ray shows decreasing PTX to 1.0 cm. Will continue chest tube to suction and repeat a chest x-ray in the morning. PAIN Management: [place] 7.5 mg q 3h. Fentanyl patch 50 mcg. Robaxin 500 mg q8h. Lidoderm patch. Toradol 15 mg q6h. Activity: OOB 3 times a day - encourage out of bed. PT and OT ordered. (NWB RUE; WBAT LLE) GI prophylaxis: Pepcid po BID. Bowel regimen: Chary-Colace BID. MOM. Lactulose daily. LBM: 02/04. DVT prophylaxis: Mechanical VTE with SCDs. Chemical management with Lovenox SQ 30 q day. DC Planning: Case management consulted for assistance with final discharge disposition. [facility] is evaluating the patient for a possible [facility]ena bed. Patient does not want to go to rehabilitation, he would like to be discharged home. Hopeful for discharge tomorrow if chest tube can be removed. Emotional support provided to patient and family at bedside and plan of care discussed. Discussed with RN at bedside. Patient is hemodynamically stable and being managed on the med/surg floor. The trauma team will round each day, and evaluate plan of care on a daily basis. LEFT intertrochanteric hip fx Orthopedics consulted and assisting in management and care 02/01: LEFT hip long trochanter nail 50% WB LLE Pain management OOB 3 times a day PT and OT ordered Encourage out of bed ABX: Ancef x3 - complete Lovenox for DVT prophylaxis RIGHT PTX 01/31: Right CT placed Pain control - Pulmonary toileting - IS and EZ pap. CDB. CXR today shows decreased in size of apical PTX Chest tube continues at 20 cm suction today Follow-up chest x-ray in the morning. Daily CT dressing changes Encourage out of bed PT and OT ordered RIGHT humerus fx Orthopedics consulted and assisting in management and care Non-operative management at this time Right sling in place Pain management NWB RUE Encourage out of bed PT and OT ordered Remarks seen and examined with GRAPHIC MANAGER-agree with assessment and plan CT to suction for another 24 hrs for small PTX pain control,IS Problem Qualifiers (1) Femur fracture, left: Qualified Code: S72.052A - Closed fracture of head of left femur, initial encounter (2) Fracture of greater tuberosity of right humerus: Qualified Code: S42.251A - Closed displaced fracture of greater tuberosity of right humerus, initial encounter Abida Estrada Feb 05, 2017 11:52 Khloe Matias MD Feb 05, 2017 15:54
[2017-02-05] MEDS: MAGNESIUM HYDROXIDE SUSP 30 ML CUP PO SCH (20:14)
[2017-02-06] VITALS (8 sets, daily range): BP systolic 111–122; BP diastolic 64–73; PULSE 84–95; RESP 16–18; TEMP 97.4–98.6; O2SAT 96–100
[2017-02-06] MEDS: ACETAMINOPHEN/HYDROcodone 325 MG/7.5 MG TAB PO PRN ×6 (03:15→20:09)
[2017-02-06] MEDS: KETOROLAC TROMETHAMINE 30 MG/ML (IVP) VIAL IV PUSH SCH ×4 (05:26→22:25)
[2017-02-06] MEDS: METHOCARBAMOL 500 MG TAB PO SCH ×3 (05:26→22:24)
[2017-02-06] MEDS: ALPRAZolam 0.5 MG TAB PO PRN ×3 (05:26→20:09)
--- NOTE | 2017-02-06 06:34 | PD.ORT.PN ---
Subjective Subjective Remarks POD 5 s/p IMN left subtroch femur fracture s/p right greater tuberosity fracture doing well. pain controlled. no complaints. Objective Vitals Vital Signs Date Time Temp Pulse Resp B/P Pulse Ox O2 Delivery O2 Flow Rate FiO2 02/06/17 04:00 98.0 87 17 111/73 98 02/06/17 00:00 98.1 84 16 122/70 98 02/05/17 20:00 98.4 81 16 112/65 100 02/05/17 16:00 97.6 83 18 112/66 99 02/05/17 16:00 99 21 02/05/17 12:00 97.1 74 18 120/64 99 02/05/17 10:25 95 02/05/17 09:15 Room Air 02/05/17 08:00 96.5 72 18 112/63 99 I/O 02/05/17 02/05/17 02/05/17 02/06/17 02/06/17 02/06/17 07:00 15:00 23:00 07:00 15:00 23:00 Intake Total 743 ml 720 ml Output Total 300 ml 70 ml 900 ml 0 ml Balance 443 ml -70 ml -180 ml 0 ml Intake Oral 480 ml 720 ml IV Total 263 ml Output Urine Total 300 ml 900 ml Chest Tube Drainage Total 0 ml 70 ml 0 ml 0 ml # Bowel Movements 0 0 Result Diagram: 02/03/17 0720 02/03/17 0720 Imaging Last 24 hours Impressions Chest X-Ray 02/01/17 0600 Signed Impressions: Service Date/Time: January 05:14 - CONCLUSION: Tiny right apical pneumothorax. Jamel Rader MD Thoracic Spine CT 01/31/171630 Signed Impressions: Service Date/Time: Tuesday, January 31, 2017 17:03 - CONCLUSION: 1. No evidence of acute or soft tissue trauma to the thoracic spine. 2. Small to moderate right pneumothorax with chest tube placed into the interlobar fissure. Keith Lancaster MD Lumbar Spine CT 01/31/171630 Signed Impressions: Service Date/Time: Tuesday, January 31, 2017 16:58 - CONCLUSION: 1. No acute findings. Allen Levi MD Head CT 01/31/171630 Signed Impressions: Service Date/Time: Tuesday, January 31, 2017 16:51 - CONCLUSION: No acute disease. No evidence of acute contusion, hemorrhage or extra-axial fluid collections. Intact calvarium. Keith Lancaster MD Chest X-Ray 01/31/171630 Signed Impressions: Service Date/Time: Tuesday, January 31, 2017 16:23 - CONCLUSION: 1. Small right pneumothorax 2. Right chest tube in place 3. No other evidence of acute process. Keith Lancaster MD Chest CT 01/31/17 163 Signed Impressions: Service Date/Time: Tuesday, January 31, 2017 17:03 - CONCLUSION: Persistent right pneumothorax. Right humeral head fractures. Babak Rios MD Cervical Spine CT 01/31/17 163 Signed Impressions: Service Date/Time: Tuesday, January 31, 2017 16:51 - CONCLUSION: No acute disease. Keith Lancaster MD Abdomen/Pelvis CT 01/31/171630 Signed Impressions: Service Date/Time: Tuesday, January 31, 2017 16:58 - CONCLUSION: 1. Small to moderate right pneumothorax with chest tube in place. 2. Comminuted fracture of the proximal left femur 3. Normal abdominal and pelvic pelvic soft tissues without evidence of traumatic soft tissue injury. 4. Intact lumbar spine. Keith Lancaster MD Objective Remarks LLE: dressings clean and dry. intact. NVI. + SILT. Calf is soft and nontender. Neg Homans. Increased AROM of left knee. Mild swelling to upper leg. RUE: +sling. NVI. + SILT. Mild swelling to upper arm. Good ROM of wrist and elbow. Assessment & Plan Assessment and Plan 1) Right minimally displaced greater tuberosity fracture proximal humerus - nonop Sling and swath at all times and will treat this nonoperatively area follow- up x-rays will be performed in 10-14 days to evaluate continued alignment. Fracture maintains position we will continue to treat this conservatively. He' ll be nonweightbearing on the right upper extremity 2) Left subtrochanteric femur fracture s/p IMN - POD 5 -50%WB -daily dressing changes with Xeroform/4x4/tape -DVT prophylaxis with lovenox, DC with Xarelto -Scripts on chart -f/u with [facility] in 2 weeks -CM for Rehab vs. C today -ortho cleared for DC when arrangements made -Plan is for removal of chest tube today and possible discharge Follow-up appointment with Dr. Bolden or [facility] in 2 weeks Yash Hayward Feb 06, 2017 06:34
[2017-02-06 07:00] LABS: HEMATOCRIT 32.8 % (39.0-51.0); MEAN CELL VOLUME 76.8 FL (80.0-100.0); MEAN CORPUSCULAR HEMOGLOBIN 24.7 PG (27.0-34.0); MEAN CORPUSCULAR HGB CONC 32.1 % (32.0-36.0); PLATELET COUNT 248 TH/MM3 (150-450); RED BLOOD COUNT 4.27 MIL/MM3 (4.50-5.90); RED CELL DISTRIBUTION WIDTH 13.7 % (11.6-17.2); REVIEW FLAG FINAL; WHITE BLOOD COUNT 8.1 TH/MM3 (4.0-11.0)
--- NOTE | 2017-02-06 07:00 | RADRPT ---
EXAM DATE/TIME: 02/06/2017 05:59 [facility] COMPARISON: CHEST SINGLE AP, February 05, 2017, 6:17. INDICATIONS : Short of breath, evaluate chest tube and pneumothorax on the right side MEDICAL HISTORY : pneumothorax SURGICAL HISTORY : chest tube ENCOUNTER: Initial ACUITY: 1 week PAIN SCORE: 6/10 LOCATION: Right chest FINDINGS: Interval reduction in size right apical pneumothorax to 8 mm. Right chest drainage tube stable in po sition. The lungs are clear. No evidence of pleural effusion. The heart is normal size. CONCLUSION: Further reduction in size of right pneumothorax, now measuring 8 mm. Edi Carter MD on February 06, 2017 at 6:58 Board Certified Radiologist. This report was verified electronically.
[2017-02-06 07:24] LABS: BICARBONATE 28.3 MEQ/L (21.0-32.0); POTASSIUM 4.3 MEQ/L (3.5-5.1)
[2017-02-06] MEDS: ENOXAPARIN SODIUM 30 MG/0.3 ML SYRINGE SQ SCH (08:05)
[2017-02-06] MEDS: CHOLECALCIFEROL (VIT D3) 5000 UNIT CAP PO SCH (08:05)
[2017-02-06] MEDS: FAMOTIDINE 20 MG TAB PO SCH ×2 (08:05→20:09)
[2017-02-06] MEDS: DOCUSATE SODIUM 50 MG/SENNA 8.6 MG TAB PO SCH ×2 (08:05→20:09)
[2017-02-06] MEDS: CALCIUM/VITAMIN D 250 MG/125 U TAB PO SCH ×3 (08:05→16:17)
[2017-02-06] MEDS: LIDOCAINE HCL 5% PATCH T-DERMAL SCH (08:05)
[2017-02-06] MEDS: SODIUM CHLORIDE 0.9% FLUSH 5 ML FLUSH IVF SCH ×2 (08:09→20:09)
[2017-02-06] MEDS: LACTULOSE SYRUP 20 GM/30 ML CUP PO SCH (08:09)
--- NOTE | 2017-02-06 12:04 | HHI.PR ---
Subjective Subjective Notes PTD: 6 Patient sitting up in bed. "I am so tired for some reason." Patient states his pain is "much better." He states he's been eating well and has been out of bed and walking. Patient wants to go home, and states that he lives with his . His mother is here from [place] to help assist him. Objective Vitals/I&O Vital Signs Date Time Temp Pulse Resp B/P Pulse Ox O2 Delivery O2 Flow Rate FiO2 02/06/17 11:32 Room Air 02/06/17 11:24 98.6 92 18 115/65 100 02/05/17 16:00 21 02/05/17 04:39 2.00 Labs Laboratory Tests Test 02/06/17 06:28 White Blood Count 8.1 Red Blood Count 4.27 Hemoglobin 10.5 Hematocrit 32.8 Mean Corpuscular Volume 76.8 Mean Corpuscular Hemoglobin 24.7 Mean Corpuscular Hemoglobin 32.1 Concent Red Cell Distribution Width 13.7 Platelet Count 248 Mean Platelet Volume 8.1 Sodium Level 140 Potassium Level 4.3 Chloride Level 105 Carbon Dioxide Level 28.3 Anion Gap 7 Blood Urea Nitrogen 13 Creatinine 0.65 Estimat Glomerular Filtration 145 Rate Random Glucose 82 Calcium Level 8.4 Radiology Last 24 hours Impressions Chest X-Ray 02/06/17 0600 Signed Impressions: Service Date/Time: Monday, February 06, 2017 05:59 - CONCLUSION: Further reduction in size of right pneumothorax, now measuring 8 mm. Edi Carter MD Narrative Exam GENERAL: This is a 31-year-old male sitting up in bed. No distress noted. Pleasant and cooperative. SKIN: Warm and dry. HEAD: Atraumatic. Normocephalic. EYES: PERRLA ENT: No nasal bleeding or discharge. Mucous membranes pink and moist. NECK: Trachea midline. No JVD. CARDIOVASCULAR: Regular rate and rhythm. RESPIRATORY: No accessory muscle use. Lungs are clear to auscultation. Breath sounds equal bilaterally. No distress or dyspnea. RIGHT lateral chest tube in place to Pleur-evac drainage system to water seal. No air leak noted. Dressing CDI. GASTROINTESTINAL: BS + x 4 quads. Abdomen soft, non-tender, nondistended. MUSCULOSKELETAL: Extremities without cyanosis, or edema. RIGHT arm in sling . + peripheral pulses x 4 extremities. Warm with good capillary refill and sensation. MAEW. NEUROLOGICAL: Awake and alert. Normal speech and pattern. A/P Problem List: (1) Pneumothorax on right (2) Femur fracture, left (3) Fracture of greater tuberosity of right humerus Assessment and Plan [place]: This is a 31-year-old male who was trimming trees when he fell out of the tree. Approximately 15 feet and landed on his back. He was initially found to be hypotensive at SBP = 89, and tachycardic with HR = 160. GCS 15. PMHx: Benzo and dilaudid use INJURIES: RIGHT humerus fx (non-op) RIGHT PTX LEFT intertrochanteric hip fx Procedures: 01/31: R CT placed 02/01: LEFT hip long trochanter nail Consults: Orthopedics. Case management. Diet: Regular diet. Tolerating po diet. Encourage good po intake with each meal. Pulmonary: Encourage good pulmonary toileting. IS at bedside and pt encouraged to use. Rationale for use explained to patient, and verbalized understanding. EZ pap. This a.m. chest x-ray shows decreasing PTX to 0.8cm. Will reduce chest tube to water seal, and reevaluate chest x-ray in the morning. If PTX stable, we will remove chest tube tomorrow. PAIN Management: [place] 7.5 mg q 3h. Fentanyl patch 50 mcg. Robaxin 500 mg q8h. Lidoderm patch. Toradol 15 mg q6h. Activity: OOB 3 times a day - encourage out of bed. PT and OT ordered. (NWB RUE; WBAT LLE) GI prophylaxis: Pepcid po BID. Bowel regimen: Chary-Colace BID. MOM. Lactulose daily. LBM: 02/04. DVT prophylaxis: Mechanical VTE with SCDs. Chemical management with Lovenox SQ 30 q day. DC Planning: Case management consulted for assistance with final discharge disposition. [facility] is evaluating the patient for a possible [facility] bed. Patient does not want to go to rehabilitation, he would like to be discharged home. He states his mother is in the country from [place] to assist in his care at home. Hopeful for discharge tomorrow if PTX stable and chest tube can be removed. Emotional support provided to patient and family at bedside and plan of care discussed. Discussed with RN at bedside. Patient is hemodynamically stable and being managed on the med/surg floor. The trauma team will round each day, and evaluate plan of care on a daily basis. LEFT intertrochanteric hip fx Orthopedics consulted and assisting in management and care 02/01: LEFT hip long trochanter nail 50% WB LLE Pain management OOB 3 times a day PT and OT ordered Encourage out of bed ABX: Ancef x3 - complete Lovenox for DVT prophylaxis RIGHT PTX 01/31: Right CT placed Pain control - Pulmonary toileting - IS and EZ pap. CDB. CXR today shows decreased in size of apical PTX Chest tube reduced to waterseal Follow-up chest x-ray in the morning. If PTX stable, plan for chest tube removal in the morning Daily CT dressing changes Encourage out of bed PT and OT ordered RIGHT humerus fx Orthopedics consulted and assisting in management and care Non-operative management at this time Right sling in place Pain management NWB RUE Encourage out of bed PT and OT ordered Remarks seen and examined with [employer]-agree with assessment and plan pain improved CT to waterseal PT/OT if PTX remains slow-plan to dc CT in am Problem Qualifiers (1) Femur fracture, left: Qualified Code: S72.052A - Closed fracture of head of left femur, initial encounter (2) Fracture of greater tuberosity of right humerus: Qualified Code: S42.251A - Closed displaced fracture of greater tuberosity of right humerus, initial encounter Abida Estrada Feb 06, 2017 12:04 Khloe Matias MD Feb 06, 2017 15:39
[2017-02-06] MEDS: fentaNYL 50 MCG/HR PATCH T-DERMAL SCH (16:18)
[2017-02-06] MEDS: REMOVE OLD PATCH T-DERMAL SCH (16:18)
[2017-02-06] MEDS: MAGNESIUM HYDROXIDE SUSP 30 ML CUP PO SCH (20:09)
[2017-02-07] VITALS (8 sets, daily range): BP systolic 108–120; BP diastolic 58–79; PULSE 73–98; RESP 16–18; TEMP 97.3–99.6; O2SAT 98–100
[2017-02-07] MEDS: ACETAMINOPHEN/HYDROcodone 325 MG/7.5 MG TAB PO PRN ×7 (00:46→22:11)
[2017-02-07] MEDS: KETOROLAC TROMETHAMINE 30 MG/ML (IVP) VIAL IV PUSH SCH ×3 (05:18→17:28)
[2017-02-07] MEDS: ALPRAZolam 0.5 MG TAB PO PRN ×3 (05:18→20:02)
[2017-02-07] MEDS: METHOCARBAMOL 500 MG TAB PO SCH ×3 (05:19→20:02)
--- NOTE | 2017-02-07 07:07 | RADRPT ---
EXAM DATE/TIME: 02/07/2017 06:24 [facility] COMPARISON: CHEST SINGLE AP, February 06, 2017, 5:59. CHEST SINGLE AP, February 05, 2017, 6:17. CHEST SINGLE AP, 2016, 5:16. INDICATIONS : Pneumothorax. MEDICAL HISTORY : Pneumothorax. SURGICAL HISTORY : Chest tube, right. ENCOUNTER: Subsequent ACUITY: 1 week PAIN SCORE: 5/10 LOCATION: Right chest FINDINGS: A single view of the chest demonstrates the lungs to be symmetrically aerated without evidence of mas s, infiltrate or effusion. Right-sided chest tube remains in place. There again is a subtle interface overlying the right third rib could represent a tiny amount of residual pleural air but is not very impressive. The cardiomediastinal contours are unremarkable. Osseous structures are intact. CONCLUSION: RIGHT chest remains in good position. Questionable residual pleural air right lung apex . Cezar Oakes MD on February 07, 2017 at 7:03 Board Certified Radiologist. This report was verified electronically.
[2017-02-07] MEDS ORDERED: BISACODYL EC 5 MG TABEC PO ONE (08:00)
[2017-02-07] MEDS ORDERED: BISACODYL 10 MG SUPP RECTAL ONE (08:00)
[2017-02-07] MEDS: SODIUM CHLORIDE 0.9% FLUSH 5 ML FLUSH IVF SCH ×2 (09:00→20:03)
[2017-02-07] MEDS: LIDOCAINE HCL 5% PATCH T-DERMAL SCH (09:08)
[2017-02-07] MEDS: CALCIUM/VITAMIN D 250 MG/125 U TAB PO SCH ×3 (09:09→17:28)
[2017-02-07] MEDS: DOCUSATE SODIUM 50 MG/SENNA 8.6 MG TAB PO SCH ×2 (09:09→20:03)
[2017-02-07] MEDS: LACTULOSE SYRUP 20 GM/30 ML CUP PO SCH (09:09)
[2017-02-07] MEDS: CHOLECALCIFEROL (VIT D3) 5000 UNIT CAP PO SCH (09:09)
[2017-02-07] MEDS: FAMOTIDINE 20 MG TAB PO SCH ×2 (09:10→20:08)
[2017-02-07] MEDS: ENOXAPARIN SODIUM 30 MG/0.3 ML SYRINGE SQ SCH (09:11)
--- NOTE | 2017-02-07 11:50 | HHI.PR ---
Subjective Subjective Notes PTD: 7 Patient sitting up in bed. No distress noted. No complaints offered. He is worried about chest tube removal later today - he is afraid it will hurt. " I was awake when they put it in and it hurt." Objective Vitals/I&O Vital Signs Date Time Temp Pulse Resp B/P Pulse Ox O2 Delivery O2 Flow Rate FiO2 02/07/17 11:27 98.5 84 18 117/64 99 02/06/17 17:58 21 02/06/17 11:32 Room Air 02/05/17 04:39 2.00 Labs Laboratory Tests Test 02/06/17 06:28 White Blood Count 8.1 TH/MM3 Red Blood Count 4.27 MIL/MM3 Hemoglobin 10.5 GM/DL Hematocrit 32.8 % Mean Corpuscular Volume 76.8 FL Mean Corpuscular Hemoglobin 24.7 PG Mean Corpuscular Hemoglobin 32.1 % Concent Red Cell Distribution Width 13.7 % Platelet Count 248 TH/MM3 Mean Platelet Volume 8.1 FL Sodium Level 140 MEQ/L Potassium Level 4.3 MEQ/L Chloride Level 105 MEQ/L Carbon Dioxide Level 28.3 MEQ/L Anion Gap 7 MEQ/L Blood Urea Nitrogen 13 MG/DL Creatinine 0.65 MG/DL Estimat Glomerular Filtration 145 ML/MIN Rate Random Glucose 82 MG/DL Calcium Level 8.4 MG/DL Radiology Last 24 hours Impressions Chest X-Ray 02/06/17 0600 Signed Impressions: Service Date/Time: Monday, February 06, 2017 05:59 - CONCLUSION: Further reduction in size of right pneumothorax, now measuring 8 mm. Edi Carter MD Narrative Exam GENERAL: This is a 31-year-old male sitting up in bed. No distress noted. Pleasant and cooperative. SKIN: Warm and dry. HEAD: Atraumatic. Normocephalic. EYES: PERRLA ENT: No nasal bleeding or discharge. Mucous membranes pink and moist. NECK: Trachea midline. No JVD. CARDIOVASCULAR: Regular rate and rhythm. RESPIRATORY: No accessory muscle use. Lungs are clear to auscultation. Breath sounds equal bilaterally. No distress or dyspnea. RIGHT lateral chest tube in place to Pleur-evac drainage system to water seal. No air leak noted. Dressing CDI. GASTROINTESTINAL: BS + x 4 quads. Abdomen soft, non-tender, nondistended. MUSCULOSKELETAL: Extremities without cyanosis, or edema. RIGHT arm in sling . + peripheral pulses x 4 extremities. Warm with good capillary refill and sensation. MAEW. NEUROLOGICAL: Awake and alert. Normal speech and pattern. A/P Problem List: (1) Pneumothorax on right (2) Femur fracture, left (3) Fracture of greater tuberosity of right humerus Assessment and Plan [place]: This is a 31-year-old male who was trimming trees when he fell out of the tree. Approximately 15 feet and landed on his back. He was initially found to be hypotensive at SBP = 89, and tachycardic with HR = 160. GCS 15. PMHx: Benzo and dilaudid use INJURIES: RIGHT humerus fx (non-op) RIGHT PTX LEFT intertrochanteric hip fx Procedures: 01/31: R CT placed 02/01: LEFT hip long trochanter nail Consults: Orthopedics. Case management. Diet: Regular diet. Tolerating po diet. Encourage good po intake with each meal. Pulmonary: Encourage good pulmonary toileting. IS at bedside and pt encouraged to use. Rationale for use explained to patient, and verbalized understanding. EZ pap. This a.m. chest x-ray shows questionable residual pneumothorax. Assessment benign. Minimal output overnight. Right lateral chest tube removed without incident. Vaseline gauze and 4 x 4 applied and secured with Elastoplast dressing. Patient tolerated procedure well. Repeat chest x-ray at 4 PM. And follow-up chest x-ray is stable, patient may DC home later this afternoon. PAIN Management: [place] 7.5 mg q 3h. Fentanyl patch 50 mcg. Robaxin 500 mg q8h. Lidoderm patch. Toradol 15 mg q6h. Activity: OOB 3 times a day - encourage out of bed. PT and OT ordered. (NWB RUE; WBAT LLE) GI prophylaxis: Pepcid po BID. Bowel regimen: Chary-Colace BID. MOM. Lactulose daily. LBM: 02/04. Intensified with bisacodyl P0/FL 1 dose today DVT prophylaxis: Mechanical VTE with SCDs. Chemical management with Lovenox SQ 30 q day. DC Planning: Case management consulted for assistance with final discharge disposition. [facility] is evaluating the patient for a possible [facility] bed. Patient does not want to go to rehabilitation, he would like to be discharged home. He states his mother is in the country from [place] to assist in his care at home. Chest tube has been removed and patient may DC home if the follow-up chest x-ray stable. Emotional support provided to patient and family at bedside and plan of care discussed. Discussed with RN at bedside. Patient is hemodynamically stable and being managed on the med/surg floor. The trauma team will round each day, and evaluate plan of care on a daily basis. LEFT intertrochanteric hip fx Orthopedics consulted and assisting in management and care 02/01: LEFT hip long trochanter nail 50% WB LLE Pain management OOB 3 times a day PT and OT ordered Encourage out of bed ABX: Ancef x3 - complete Lovenox for DVT prophylaxis RIGHT PTX 01/31: Right CT placed Pain control - Pulmonary toileting - IS and EZ pap. CDB. CXR today shows questionable residual pneumothorax. Assessment benign Chest tube removed at bedside today without incident. Follow-up chest x-ray at 4 PM And chest x-ray stable, patient can DC home Encourage out of bed PT and OT ordered RIGHT humerus fx Orthopedics consulted and assisting in management and care Non-operative management at this time Right sling in place Pain management NWB RUE Encourage out of bed PT and OT ordered Remarks seen and examined with NURSE OBGYN-agree with assessment an plan ptx management pain control dvt prophylaxis Problem Qualifiers (1) Femur fracture, left: (2) Fracture of greater tuberosity of right humerus: Abida Estrada Feb 07, 2017 11:50 Khloe Matias MD Feb 27, 2017 12:28
[2017-02-07] MEDS ORDERED: METH500T3 PO (14:43)
--- NOTE | 2017-02-07 16:24 | RADRPT ---
EXAM DATE/TIME: 02/07/2017 15:59 [facility] COMPARISON: CHEST SINGLE AP, February 07, 2017, 6:24. INDICATIONS : Post chest tube removal. MEDICAL HISTORY : None. SURGICAL HISTORY : None. ENCOUNTER: Subsequent ACUITY: 1 day PAIN SCORE: 3/10 LOCATION: Right chest FINDINGS: A single view of the chest demonstrates the lungs to be symmetrically aerated without evidence of mas s, infiltrate or effusion. The cardiomediastinal contours are unremarkable. Osseous structures are intact. The right-sided chest tube has been removed and there is no pneumothorax. CONCLUSION: No acute disease. There is no pneumothorax. Los Seay MD on February 07, 2017 at 16:20 Board Certified Radiologist. This report was verified electronically.
[2017-02-07] MEDS: MAGNESIUM HYDROXIDE SUSP 30 ML CUP PO SCH (20:08)
[2017-02-08 00:01] VITALS: BP 120/69; PULSE 90; RESP 18; TEMP 100.5; O2SAT 99
[2017-02-08] MEDS: KETOROLAC TROMETHAMINE 30 MG/ML (IVP) VIAL IV PUSH SCH ×2 (00:42→05:13)
[2017-02-08] MEDS: ACETAMINOPHEN/HYDROcodone 325 MG/7.5 MG TAB PO PRN ×4 (02:40→13:01)
[2017-02-08] MEDS: METHOCARBAMOL 500 MG TAB PO SCH ×2 (05:13→12:56)
[2017-02-08] MEDS: ALPRAZolam 0.5 MG TAB PO PRN ×2 (05:13→12:56)
[2017-02-08 07:52] VITALS: BP 113/64; PULSE 79; RESP 19; TEMP 98.1; O2SAT 98
[2017-02-08] MEDS: SODIUM CHLORIDE 0.9% FLUSH 5 ML FLUSH IVF SCH (09:00)
[2017-02-08] MEDS: LACTULOSE SYRUP 20 GM/30 ML CUP PO SCH (09:00)
[2017-02-08] MEDS: ENOXAPARIN SODIUM 30 MG/0.3 ML SYRINGE SQ SCH (09:51)
[2017-02-08] MEDS: CALCIUM/VITAMIN D 250 MG/125 U TAB PO SCH ×2 (09:52→12:56)
[2017-02-08] MEDS: FAMOTIDINE 20 MG TAB PO SCH (09:52)
[2017-02-08] MEDS: LIDOCAINE HCL 5% PATCH T-DERMAL SCH (09:52)
[2017-02-08] MEDS: DOCUSATE SODIUM 50 MG/SENNA 8.6 MG TAB PO SCH (09:52)
[2017-02-08] MEDS: CHOLECALCIFEROL (VIT D3) 5000 UNIT CAP PO SCH (09:55)
[2017-02-08 11:33] VITALS: BP 119/69; PULSE 85; RESP 18; TEMP 98.7; O2SAT 100
[2017-02-08 11:35] VITALS: BP 119/69; PULSE 85; RESP 18; TEMP 98.7; O2SAT 100
[2017-02-08] MEDS ORDERED: XARE10TA PO (13:41)
[2017-02-08] MEDS ORDERED: HYDR-3366 PO (13:41)
[2017-02-08 14:22] VITALS: O2SAT 99
--- NOTE | 2017-02-08 15:39 | HHI.DS ---
Discharge Summary Admission Date Jan 31, 2017 at 17:10 Discharge Date: Feb 08, 2017 Admitting Diagnosis (1) Pneumothorax on right Diagnosis: Principal (2) Femur fracture, left Diagnosis: Principal (3) Fracture of greater tuberosity of right humerus Diagnosis: Principal Brief History Fall. CBC/BMP: 02/06/17 0628 02/06/17 0628 Significant Findings Laboratory Tests Test 02/06/17 06:28 Red Blood Count 4.27 MIL/MM3 (4.50-5.90) Hemoglobin 10.5 GM/DL (13.0-17.0) Hematocrit 32.8 % (39.0-51.0) Mean Corpuscular Volume 76.8 FL (80.0-100.0) Mean Corpuscular Hemoglobin 24.7 PG (27.0-34.0) Calcium Level 8.4 MG/DL (8.5-10.1) Imaging Last Impressions Chest X-Ray 02/07/17 1600 Signed Impressions: Service Date/Time: Tuesday, February 07, 2017 15:59 - CONCLUSION: No acute disease. There is no pneumothorax. Los Seay MD Femur X-Ray 02/01/17 0000 Signed Impressions: Service Date/Time: January 10:50 - CONCLUSION: Good position and alignment on the postoperative study. Rodo Hinson MD Thoracic Spine CT 01/31/17 1631 Signed Impressions: Service Date/Time: Tuesday, January 31, 2017 17:03 - CONCLUSION: 1. No evidence of acute or soft tissue trauma to the thoracic spine. 2. Small to moderate right pneumothorax with chest tube placed into the interlobar fissure. Keith Lancaster MD Lumbar Spine CT 01/31/17 1631 Signed Impressions: Service Date/Time: Tuesday, January 31, 2017 16:58 - CONCLUSION: 1. No acute findings. Allen Levi MD Head CT 01/31/17 163 Signed Impressions: Service Date/Time: Tuesday, January 31, 2017 16:51 - CONCLUSION: No acute disease. No evidence of acute contusion, hemorrhage or extra-axial fluid collections. Intact calvarium. Keith Lancaster MD Chest CT 01/31/17 1631 Signed Impressions: Service Date/Time: Tuesday, January 31, 2017 17:03 - CONCLUSION: Persistent right pneumothorax. Right humeral head fractures. Babak Rios MD Cervical Spine CT 01/31/17 1631 Signed Impressions: Service Date/Time: Tuesday, January 31, 2017 16:51 - CONCLUSION: No acute disease. Keith Lancaster MD Abdomen/Pelvis CT 01/31/17 1631 Signed Impressions: Service Date/Time: Tuesday, January 31, 2017 16:58 - CONCLUSION: 1. Small to moderate right pneumothorax with chest tube in place. 2. Comminuted fracture of the proximal left femur 3. Normal abdominal and pelvic pelvic soft tissues without evidence of traumatic soft tissue injury. 4. Intact lumbar spine. Keith Lancaster MD PE at Discharge GENERAL: This is a 31-year-old male sitting up in bed. No distress noted. Pleasant and cooperative. SKIN: Warm and dry. HEAD: Atraumatic. Normocephalic. EYES: PERRLA ENT: No nasal bleeding or discharge. Mucous membranes pink and moist. NECK: Trachea midline. No JVD. CARDIOVASCULAR: Regular rate and rhythm. RESPIRATORY: No accessory muscle use. Lungs are clear to auscultation. Breath sounds equal bilaterally. No distress or dyspnea. GASTROINTESTINAL: BS + x 4 quads. Abdomen soft, non-tender, nondistended. MUSCULOSKELETAL: Extremities without cyanosis, or edema. RIGHT arm in sling . + peripheral pulses x 4 extremities. Warm with good capillary refill and sensation. MAEW. NEUROLOGICAL: Awake and alert. Normal speech and pattern. Hospital Course [place]: This is a 31-year-old male who was trimming trees when he fell out of the tree. Approximately 15 feet and landed on his back. He was initially found to be hypotensive at SBP = 89, and tachycardic with HR = 160. GCS 15. PMHx: Benzo and dilaudid use INJURIES: RIGHT humerus fx (non-op) RIGHT PTX LEFT intertrochanteric hip fx Procedures: 01/31: R CT placed 02/01: LEFT hip long trochanter nail Consults: Orthopedics. Case management. The patient is now tolerating a po diet. Eating and drinking well. Pain is being managed well with PO pain medications, and patient is being a provided with a script for pain meds upon discharge. (NO driving while taking narcotic pain medication enforced to patient.) Pt is having regular bowel movements, and have recommended to patient to continue with stool softeners while taking narcotic pain medications to prevent constipation. Pt has been participating in PT and OT while admitted at [place] and has been ambulating with their assistance and independently . All follow up appointments have been provided and discussed with the patient. It is recommended that the patient keeps all his follow up appointments for continued recovery. Therefore, the patient is stable to be safely discharged home into his mother and 's care from a trauma surgery standpoint. Thank you for allowing us to participate in his care. We wish Garry the best in his recovery. LEFT intertrochanteric hip fx Orthopedics consulted and assisting in management and care 02/01: LEFT hip long trochanter nail WBAT LLE - clarified with orthopedics Pain management OOB 3 times a day PT and OT ordered Encourage out of bed ABX: Ancef x3 - complete Lovenox for DVT prophylaxis RIGHT PTX 01/31: Right CT placed Pain control - Pulmonary toileting - IS and EZ pap. CDB. CXR today shows questionable residual pneumothorax. Assessment benign Chest tube removed at bedside today without incident. Follow-up chest x-ray at 4 PM And chest x-ray stable, patient can DC home Encourage out of bed PT and OT ordered RIGHT humerus fx Orthopedics consulted and assisting in management and care Non-operative management at this time Right sling in place Pain management NWB RUE Encourage out of bed PT and OT ordered Pt Condition on Discharge: Stable Discharge Disposition: Discharge Home Discharge Instructions DIET: Follow Instructions for: As Tolerated, No Restrictions Activities you can perform: Regular-No Restrictions, Partial Weight Bearing Activities to Avoid: Driving for 24 hrs, Concussion Sports, Contact Sports, Lifting/Bending, Strenuous Activity Other Activity Instructions: Non weight bearing RUE 50% weight bearing LLE Abida Estrada Feb 08, 2017 15:39
== END 2017-02-08 15:09 | disposition home or self-care (01) | DRG 956 ==
LOC: NEPI 16:26 → EDBD 17:10 → N03B 17:10 → N06B 02-01 12:51
PROVIDERS: ADMIT Surgery; ATTEND Surgery
PROC: 0W9930Z Drainage of Right Pleural Cavity with Drainage Device, Percutaneous Approach (ICD-10-PCS; 2017-01-31)
PROC: 0QS736Z Reposition Left Upper Femur with Intramedullary Internal Fixation Device, Percutaneous Approach (ICD-10-PCS; principal; 2017-02-01 09:50)
DX: S72.142A Displaced intertrochanteric fracture of left femur, initial encounter for closed fracture (principal); S27.0XXA Traumatic pneumothorax, initial encounter; I95.9 Hypotension, unspecified; S22.49XA Multiple fractures of ribs, unspecified side, initial encounter for closed fracture; S42.254A Nondisplaced fracture of greater tuberosity of right humerus, initial encounter for closed fracture; S72.22XA Displaced subtrochanteric fracture of left femur, initial encounter for closed fracture; R00.0 Tachycardia, unspecified; W11.XXXA Fall on and from ladder, initial encounter; Y93.H9 Activity, other involving exterior property and land maintenance, building and construction; Y92.007 Garden or yard of unspecified non-institutional (private) residence as the place of occurrence of the external cause; Y99.0 Civilian activity done for income or pay; S20.412A Abrasion of left back wall of thorax, initial encounter; Z23 Encounter for immunization
CPT/HCPCS: 32551; 70450; 71010; 71260; 72125; 72128; 72131; 73551; 73552; 74177; 76000; 80048; 82435; 82565; 82947; 84132; 84295; 84520; 85014; 85018; 85025; 85027; 85610; 85730; 86850; 86900; 86901; 87641; 90732; 94150; 94640; 96374; 96375; 99291; C1713; C9113; G0390; J0131; J0690; J1170; J1580; J1650; J1885; J2175; J2250; J2270; J2370; J2405; J2710; J3010; J3370; J7030; J7050; L1830; Q9967

== ENCOUNTER 2017-04-01 13:15 | Emergency (ER) | payer SELFPAY ==
[~2017-04-01] VITALS: Ht 165.1 cm; Wt 67.0 kg
[~2017-04-01 13:15] MED LIST: HYDR-3366 PO; MAGN400S PO; METH500T3 PO; SENN1TAB PO; XARE10TA PO
[2017-04-01 13:17] VITALS: BP 106/58; PULSE 115; RESP 13; TEMP 99; O2SAT 99
[2017-04-01] MEDS ORDERED: IBUP-232 PO (14:22)
[2017-04-01] MEDS ORDERED: LIDO1PAD52 TOPICAL (14:22)
[2017-04-01] MEDS ORDERED: MUPI2%T TOPICAL (14:22)
[2017-04-01] MEDS ORDERED: BACT800T5 PO (14:22)
[2017-04-01] MEDS ORDERED: MAPA500T13 PO (14:22)
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
== END 2017-04-01 14:36 | disposition home or self-care (01) ==
LOC: NEPK 13:15
DX: M25.551 Pain in right hip (principal); Z86.14 Personal history of Methicillin resistant Staphylococcus aureus infection
CPT/HCPCS: 99284